=== PATIENT | male | born 2000 | race Caucasian/White ===

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

== ENCOUNTER 2022-06-18 14:53 | Emergency (ER) | payer OTHER, MEDICAID, SELFPAY ==
[2022-06-18 14:53] VITALS: BP 145/118; PULSE 107; RESP 18; TEMP 35.5; O2SAT 99; BMI 30.1
--- NOTE | 2022-06-18 15:06 | EX.ED.DYSGE1 ---
HPI History of Present Illness Chief Complaint: Nausea/Vomiting Informant: patient Onset/Context/Timing Onset: Today Current Severity: Moderate Maximum Severity: Moderate Narrative Narrative: Patient presents secondary to abdominal pain with nausea and vomiting. He drank a shot of liquor an hour ago and developed symptoms after this. PFSH PFSH Medical History no medical history no medical history Home Medications ondansetron 4 mg disintegrating tablet 4 mg PO Q8H PRN PRN Nausea #10 tabs 06/18/22 [Rx Last Taken Unknown] Allergy/AdvReac Type Severity Reaction Status Date / Time No Known Allergies Allergy Verified 06/18/22 14:55 Surgical History no surgical history no surgical history Social History Smoking Status: Never smoker ROS ROS ED Constitutional Constitutional ED: Denies chills or fever(s) Eyes Eyes: Denies change in vision or discharge from eye(s) ENT ENT ED: Denies discharge from eye(s), rhinorrhea or sore throat Cardiovascular Cardiovascular: Denies chest pain or palpitations Respiratory/Chest Respiratory/Chest: Denies cough or dyspnea Gastrointestinal Gastrointestinal: Reports abdominal pain, nausea and vomiting; Denies diarrhea Genitourinary Genitourinary ED: Denies dysuria Musculoskeletal Musculoskeletal: Denies back pain or extremity pain Integumentary Denies Abrasions or rash Neurologic Neurologic: Denies headache(s) or weakness Psychiatric Psychiatric: Reports anxiety Allergic/Immunologic Allergic/Immunologic ED: Denies lip swelling or urticaria EXAM Physical Exam Const Vital Signs: 06/18/22 14:53 Temperature 96 F L Temperature Source Temporal Pulse Rate 107 H Respiratory Rate 18 Blood Pressure 145/118 H Blood Pressure Mean 127 Pulse Ox 99 Oxygen Delivery Method Room Air Positive well nourished and well developed General Appearance ED: well developed HEENT Reports normocephalic and head/scalp atraumatic Eyes PERRL and EOMs intact bilaterally Neck supple Chest Wall inspection of chest normal and palpation of chest normal Resp normal respiratory effort and clear to auscultation bilaterally Cardio regular rate and regular rhythm GI GI Narrative: Mild epigastric tenderness to palpation. No guarding or rebound. Palpation: soft Extremity normal to inspection Neuro oriented x3 and no sensory deficits noted Sensorium / Orientation: alert Motor Exam: strength 5/5 throughout Psych Mood & Affect: anxious Skin no rashes or lesions noted MDM MDM MDM Narrative Medical decision making narrative: Patient initially given IM Toradol and Phenergan. Treatment and Re-Evaluation :: On repeat evaluation patient states he still has vomiting despite IM Phenergan. At that time IV line is established and he is given a liter of fluid along with IV Zofran. On repeat exam he states he had just thrown up again. There is some clear mucus in the emesis bag. He is given a dose of Reglan and Benadryl. At this time patient is resting comfortably. He has not had significant further vomiting. I will discharge him to home with a prescription for Zofran that he can use as needed. I do not feel he needs lab work or further imaging studies. Discharge Plan Triage Chief Complaint: Nausea/Vomiting ED Provider: Meera Barahona Dx/Rx/DC Orders Clinical Impression: Vomiting Instructions: ED Vomiting (Adult) Prescriptions: New ondansetron 4 mg tablet,disintegrating 4 mg PO Q8H PRN PRN (Reason: Nausea) Qty: 10 0RF Primary Care Provider: Yi Lagos Referrals: Yi Lagos MD [Primary Care Provider] - 3-5 Days if not improving Disposition Disposition: Home, Self Care
[2022-06-18] MEDS: Ketorolac 60 MG/2 ML Vial IM (15:10)
[2022-06-18] MEDS: proMETHazine 25 MG/ML Syringe IM (15:11)
[2022-06-18] MEDS: 0.9% Normal Saline 1,000 ML 1000 ML IV (15:57)
[2022-06-18] MEDS: Ondansetron 4 MG/2 ML Vial IV (15:57)
[2022-06-18] MEDS: DiphenhydrAMINE 50 MG/ML Syringe 12.5 MG IV (17:19)
[2022-06-18] MEDS: Metoclopramide 10 MG/2 ML Vial IV (17:19)
== END 2022-06-18 19:35 | disposition home or self-care (01) ==
PROVIDERS: Emergency Provider Emergency Medicine; PCP Pediatrics; Visit Provider Emergency Medicine
DX: R11.2 Nausea with vomiting, unspecified (principal); R10.13 Epigastric pain
CPT/HCPCS: 96361; 96372; 96374; 96375; 99282; J7030; A4216; J2405

== ENCOUNTER 2022-06-20 13:47 | Emergency (ER) | payer BC, MEDICAID, SELFPAY ==
[2022-06-20 13:48] VITALS: BP 140/100; PULSE 63; RESP 16; TEMP 36; O2SAT 99; BMI 28.5
--- NOTE | 2022-06-20 14:03 | ED.VIS.GI ---
HPI HPI - GI History of Present Illness Chief Complaint: Nausea/Vomiting Detail of Chief Complaint: Epigastric abdominal pain. Informant: patient Abdominal Pain/Flank Pain Onset: Days Timing: Intermittent Quality: Cramping Location: Epigastric Current Severity: Mild Maximum Severity: Mild Worsened by: Nothing Relieved by: Nothing Nausea/Vomiting/Emesis GI Symptom: Positive for Nausea and Vomiting Onset: Days Quality: Positive for Nonbilious; Negative for Blood streaks, Coffee ground or Hematemesis Severity: Mild Diarrhea/Melena/Hematochezia GI Symptom: Negative for Diarrhea, Melena or Hematochezia Associated Symptoms Associated Symptoms: Negative for Dysuria, Frequency, Hematuria or Urgency Narrative Narrative: 22-year-old male no seen past medical or surgical history. Denies any prior abdominal surgeries. Was seen 2 days ago for nausea and vomiting after drinking alcohol. He was treated with IV fluids and nausea medication and he improved. He was written a prescription for nausea medication which she never got filled. He presents today complaining of epigastric abdominal pain with nausea and vomiting. He is never had pancreatitis or gastritis. He denies any hematemesis or melena. He denies any right upper quadrant pain. No fever or chills. Prior similar symptoms: Yes Recent Illness/Hospitalization: No PFSH PFSH Medical History no medical history no medical history Home Medications ondansetron 4 mg disintegrating tablet 4 mg PO Q8H PRN PRN Nausea #10 tabs 06/18/22 [Rx Last Taken Unknown] Allergy/AdvReac Type Severity Reaction Status Date / Time No Known Allergies Allergy Verified 06/18/22 14:55 Surgical History no surgical history no surgical history Social History Smoking Status: Never smoker ROS ROS ED ROS Narrative Nausea and vomiting. Epigastric abdominal pain. Review of Systems ROS Unobtainable: Denies due to encephalopathy Constitutional Constitutional ED: Denies chills or fever(s) ENT ENT ED: Denies ear pain Cardiovascular Cardiovascular: Denies chest pain or palpitations Respiratory/Chest Respiratory/Chest: Denies cough or dyspnea Gastrointestinal Gastrointestinal: Reports abdominal pain, nausea and vomiting; Denies constipation, diarrhea or melena Genitourinary Genitourinary ED: Denies dysuria or hematuria Musculoskeletal Musculoskeletal: Denies arthralgias or back pain Integumentary Denies abscess Neurologic Neurologic: Denies headache(s) Psychiatric Psychiatric: Denies anxiety Endocrine Endocrinology: Denies polydipsia Hematologic/Lymphatic Hematologic/Lymphatic: Denies easy bleeding or easy bruising Allergic/Immunologic Allergic/Immunologic ED: Denies mouth swelling or tongue swelling EXAM Physical Exam Narrative Exam Narrative: 22-year-old male vital signs are stable afebrile. He does not look septic or toxic. He is actively nauseated and retching in the room. H EENT exam unremarkable. Neck nontender. Lungs clear to auscultation bilaterally. Heart regular rhythm rate about 65 no murmur. Chest wall nontender. Abdomen soft. Nondistended. Normal bowel sounds. No peritoneal signs. No Asher sign. No McBurney's point tenderness. He does have mild epigastric tenderness. No hernia or mass. No obstruction or distention. Back nontender. Moving all 4 extremities. Calves nontender. Neurologically is awake and alert with no focal motor deficits. Const Vital Signs: 06/20/22 13:48 Temperature 96.8 F L Temperature Source Temporal Pulse Rate 63 Respiratory Rate 16 Blood Pressure 140/100 H Blood Pressure Mean 113 Pulse Ox 99 Oxygen Delivery Method Room Air Positive well nourished and well developed; Negative for obese, cachectic, contractures or unkempt General Appearance ED: well developed and NAD; Negative for unkempt, cachectic, contractures or pallor Nutritional Appearance: Negative for cachectic or obese HEENT Reports moist mucous membranes; Denies dry mucous membranes normocephalic and atraumatic; Negative for trauma or tenderness Mouth ED: No dry mucous membranes Mouth: No dry mucous membranes Eyes PERRL and EOMs intact bilaterally General Eye ED: Negative for pale conjunctiva or scleral icterus Neck no lymphadenopathy, supple and no JVD General: Negative for tenderness Lymph Lymphatic: Negative for other Resp normal respiratory effort and clear to auscultation bilaterally Effort and Inspection: Negative for respiratory distress Auscultation: Negative for rales, rhonchi or wheezes Cardio regular rate, regular rhythm, S1 normal heart sound, S2 normal heart sound and no murmurs Rate: Negative for bradycardia Rhythm: Negative for abnormal rhythm GI non-distended and no masses; Negative for non-tender GI Narrative: Mild epigastric tenderness. Inspection: Negative for abdominal distention Auscultation: normoactive bowel sounds Palpation: soft and tender; Negative for guarding, rigid, hepatomegaly, splenomegaly, hernia, mass, pulsatile mass or rebound tenderness present Back/Spine no CVA tenderness General Back: Negative for CVA tenderness Cervical Spine: Negative for cervical spine tenderness Thoracic Spine / Upper Back: Negative for thoracic spinal tenderness Lumbar Spine / Lower Back: Negative for lumbar spinal tenderness Extremity full ROM General Extremety ED: Negative for edema or tenderness General Extremity: Negative for edema Neuro CN's II-XII intact bilaterally and moves all extremities Sensorium / Orientation: alert, oriented to person, oriented to place and oriented to time; Negative for orientation impaired, confused, lethargic or stuporous Motor Exam: strength 5/5 throughout Psych mental status grossly normal and thought process normal Appearance: Negative for unkempt Attitude: No agitated Mood & Affect: Negative for depressed, anxious or tearful Skin no wounds General Skin Exam: Negative for jaundice or pallor Lesions: no lesions Rashes: no rashes Trauma: Negative for abrasion Nails: Negative for discolored MDM MDM MDM Narrative Medical decision making narrative: 22-year-old male with nausea, vomiting and epigastric abdominal pain. This after drinking alcohol. More likely it is a alcohol induced gastritis. Consider pancreatitis. We will treat with IV fluids. Zofran for nausea. Screening labs to be obtained. This time he does not need any imaging. I do not think it is his gallbladder. Clinically is not his appendix. This could also be a viral syndrome. Repeat exam patient is doing well. He was given a second dose of Zofran. His abdomen shows epigastric discomfort but there is no signs of pancreatitis. Or perforated viscus. He has no right upper or right lower quadrant pain no obstruction. He already was given a prescription of Zofran which he never filled. I will also have him use Tums. I suspect he is got a secondary gastritis from his alcohol use. History & Record Review Discussion w/independent historian: Patient Lab Data Attestation: I reviewed the patient's lab results. Lab results narrative: CBC shows a white count of 14.7. H&H of 17.3 and 50. Platelets 289. Electrolytes unremarkable gap of 10 normal BUN and creatinine. Normal liver enzymes. Glucose 156. Lipase was 70. Labs: Laboratory Results - last 24 hr 06/20/22 06/20/22 14:13 14:13 WBC 14.7 H RBC 6.16 Hgb 17.3 H Hct 50.6 MCV 82.1 MCH 28.1 MCHC 34.2 RDW Std Deviation 38.1 RDW Coeff of Carmelina 12.9 Plt Count 289 MPV 9.5 Immature Gran % (Auto) 0.500 Neut % (Auto) 80.9 H Lymph % (Auto) 13.6 L Beckham % (Auto) 4.6 Eos % (Auto) 0.1 Baso % (Auto) 0.3 Absolute Neuts (auto) 11.9 H Absolute Lymphs (auto) 1.99 Nucleated RBC % 0 Sodium 138 Potassium 3.8 Chloride 104 Carbon Dioxide 24.0 Anion Gap 10 BUN 10 Creatinine 0.96 Estim Creat Clear Calc 146.70 Est GFR (MDRD) Af Amer 127 Est GFR (MDRD) Non-Af 105 BUN/Creatinine Ratio 10.4 Glucose 156 H Calcium 9.7 Total Bilirubin 0.40 AST 51 H ALT 58 Alkaline Phosphatase 88 Total Protein 8.0 Albumin 4.4 Globulin 3.6 Albumin/Globulin Ratio 1.2 Lipase 70 L Discharge Plan Triage Chief Complaint: Nausea/Vomiting ED Provider: Rene Bautista Dx/Rx/DC Orders Clinical Impression: Vomiting, Gastritis Instructions: ED Gastritis (Adult), ED Vomiting (Adult) Prescriptions: No Action ondansetron 4 mg tablet,disintegrating 4 mg PO Q8H PRN PRN (Reason: Nausea) Qty: 10 0RF Primary Care Provider: Yi Lagos Referrals: Yi Lagos MD [Primary Care Provider] - 3-5 Days if not improving Activity Restrictions/Additional Instructions: Plenty of fluids and rest. Tums to help your stomach. You can take 2 every 4 hours as needed. Avoid alcoholand spicy foods until improving. Zofran, the prescription you were given the other day, for nausea. Disposition Disposition: Home, Self Care
[2022-06-20] MEDS: Ondansetron 4 MG/2 ML Vial IV ×2 (14:11→15:54)
[2022-06-20] MEDS: 0.9% Normal Saline 1,000 ML 1000 ML IV (14:11)
[2022-06-20 14:19] LABS: Absolute Lymphocyte Count 1.99 X10^3/uL (0.83-4.51); Absolute Neutrophil Count 11.9 X10^3/uL (2.0-7.7); Basophil# 0.05 X10^3/uL; Basophil% 0.3 % (0-1); Eosinophil# 0.02 X10^3/uL; Eosinophils% 0.1 % (0-5); Hematocrit 50.6 % (40-54); Hemoglobin 17.3 g/dL (13.0-16.5); Lymphocyte # 1.99 X10^3/ul (0.83-4.51); Lymphocyte % 13.6 % (19-41); Mean Corp Hgb Conc 34.2 g/dL (32-36); Mean Corpuscular Hgb 28.1 pg (27.0-32.0); Mean Corpuscular Volume 82.1 fL (80-94); Mean Platelet Vol. 9.5 fl (6.2-12.0); Monocyte# 0.68 X10^3/uL; Monocyte% 4.6 % (0-10); NRBC Flagged by Analyzer 0 % (0-5); Neutrophil # 11.85 X10^3/uL (2.7-7.7); Neutrophil % 80.9 % (47-70); Platelet Count 289 K/mm3 (150-450); RBC Distribution Width CV 12.9 % (11.6-14.6); RBC Distribution Width SD 38.1 fl (35.1-43.9); Red Blood Count 6.16 M/mm3 (4.6-6.2); White Blood Count 14.7 K/mm3 (4.4-11.0)
[2022-06-20 15:43] LABS: ALB/GLOB Ratio 1.2 RATIO (0.9-2.4); AST(SGOT) 51 U/L (15-37); Alanine Aminotransfer ALT/SGPT 58 U/L (16-61); Albumin, Serum 4.4 g/dL (3.2-5.0); Alkaline Phosphatase 88 U/L (45-117); Anion Gap 10 (5-15); BUN 10 mg/dL (7-18); BUN/Creat Ratio 10.4 RATIO (10-20); Calcium,Total 9.7 mg/dL (8.5-10.1); Chloride 104 mmol/L (98-107); Creatinine, Serum 0.96 mg/dL (0.70-1.30); EST Glomerular Filtration Rate 105 mL/min (>60); Est Glom Filt Rate - Afr Amer 127 mL/min (>60); Globulin 3.6 g/dL (2.2-4.2); Glucose 156 mg/dL (74-106); Lipase 70 U/L (73-393); Potassium 3.8 mmol/L (3.5-5.1); Sodium Level 138 mmol/L (136-145)
[2022-06-20] MEDS: Metoclopramide 10 MG/2 ML Vial IV (16:31)
[2022-06-20] MEDS: DiphenhydrAMINE 50 MG/ML Syringe 25 MG IV (16:31)
== END 2022-06-20 17:24 | disposition home or self-care (01) ==
PROVIDERS: Emergency Provider Emergency Medicine; PCP Pediatrics; Visit Provider Emergency Medicine
DX: K29.70 Gastritis, unspecified, without bleeding (principal); F10.90 Alcohol use, unspecified, uncomplicated
CPT/HCPCS: 80053; 83690; 85025; 96361; 96365; 96375; 96376; 99283; J7030; A4216; J2405

== ENCOUNTER 2023-10-04 11:09 | Emergency (ER) | payer SELFPAY ==
[2023-10-04 11:10] VITALS: BP 157/89; PULSE 80; RESP 16; TEMP 35.6; O2SAT 97; BMI 23.7
--- NOTE | 2023-10-04 11:28 | RAD_ITS ---
EXAM: XR LEFT HAND COMPLETE, 3 OR MORE VIEWS CLINICAL INDICATION: hand pain TECHNIQUE: Frontal, lateral and oblique views of the left hand. COMPARISON: No relevant prior studies available. FINDINGS: BONES/JOINTS: No significant abnormality. No acute fracture. No subluxation. Normal alignment. Preservation of the joint space. No sclerotic or destructive changes observed. SOFT TISSUES: No significant abnormality. No soft tissue swelling or gas. No radiopaque foreign body. RAD/Hand Min 3 Views IMPRESSION: Negative left hand x-rays. Electronically Signed: Mich Lambert DO at 11:38 EDT ,
[2023-10-04] MEDS: Ondansetron 4 MG/2 ML Vial IV (11:37)
[2023-10-04] MEDS: 0.9% Normal Saline (1000mL) 1,000 ML 999 ML IV (11:37)
[2023-10-04] MEDS: Ketorolac 15 MG/ML Vial IV (11:38)
[2023-10-04] MEDS: Famotidine 200 MG/20 ML MDV 20 MG in 0.9% Normal Saline (Pres. free 8 ML 300 MG IV (11:42)
[2023-10-04 11:49] LABS: Absolute Lymphocyte Count 1.07 X10^3/uL (0.83-4.51); Basophil# 0.03 X10^3/uL; Basophil% 0.3 % (0-1); Eosinophil# 0.05 X10^3/uL; Eosinophils% 0.4 % (0-5); Hematocrit 44.4 % (40-54); Hemoglobin 15.3 g/dL (13.0-16.5); Lymphocyte # 1.07 X10^3/ul (0.83-4.51); Mean Corp Hgb Conc 34.5 g/dL (32-36); Mean Corpuscular Hgb 31.2 pg (27.0-32.0); Mean Corpuscular Volume 90.6 fL (80-94); Mean Platelet Vol. 10.4 fl (6.2-12.0); Monocyte# 0.58 X10^3/uL; Monocyte% 4.9 % (0-10); NRBC Flagged by Analyzer 0 % (0-5); Neutrophil # 10.03 X10^3/uL (2.7-7.7); Neutrophil % 84.8 % (47-70); Platelet Count 240 K/mm3 (150-450); RBC Distribution Width CV 12.4 % (11.6-14.6); RBC Distribution Width SD 40.6 fl (35.1-43.9); White Blood Count 11.8 K/mm3 (4.4-11.0)
--- NOTE | 2023-10-04 11:49 | EX.ED.DYSGE1 ---
HPI <SOHA Mccallum - Last Filed: 10/04/23 12:51> History of Present Illness Chief Complaint: Nausea/Vomiting Narrative Narrative: Patient is a 23-year-old male with no significant medical history presents to the emergency department with multiple chronic complaints. Patient states that he has been having abdominal pain, nausea and vomiting every morning over the last 6 months. Patient also is here because he has a lump to the left palm and some numbness and tingling to his fingers that has been ongoing for the last 2 months. Patient does use marijuana daily, he states he stopped for a day or 2 to see if it helped his pain but it did not. Patient has not followed up with the PCP or orthopedic. Denies any fever chills nausea or vomiting. Denies any surgical history. PFSH <SOHA Mccallum - Last Filed: 10/04/23 12:51> PFSH Home Medications ?Medication ?Instructions ?Recorded ?Last Taken ?Type ondansetron 4 mg disintegrating 4 mg PO Q8H PRN PRN Nausea #10 tabs 06/18/22 Unknown Rx tablet Allergy/AdvReac Type Severity Reaction Status Date / Time No Known Allergies Allergy Verified 10/04/23 11:10 Social History Smoking Status: Current every day smoker tobacco type: e-cigarettes ROS <SOHA Mccallum - Last Filed: 10/04/23 12:51> ROS ED ROS Narrative Constitutional: Negative for fever, chills, weight loss, weakness Eyes: Negative for vision loss, vision change, double vision ENT: Negative for any sore throat, ear pain, congestion Cardiovascular: Negative for any chest pain, tightness, palpitations Respiratory: Negative for any cough, sputum production, hemoptysis, dyspnea, dyspnea on exertion, orthopnea Gastrointestinal: Negative for any diarrhea, constipation, blood in stool, blood in vomit. Positive for abdominal pain, nausea and vomiting : Negative for any urinary frequency, dysuria, retention, blood in urine Muscle skeletal: Negative for any neck pain, back pain. Positive for left hand lump, numbness and tingling Neurological: Negative for any headache, syncope, dizziness Skin: Negative for any rashes, itching, abrasions, lacerations Psychiatric: Negative for any depression, anxiety, stress, suicidal ideation, homicidal ideation Hematologic: Negative for any excessive bruising, easy bleeding EXAM <SOHA Mccallum - Last Filed: 10/04/23 12:51> Physical Exam Narrative Exam Narrative: Vital signs reviewed. HEET: Head normocephalic atraumatic, TMs clear bilaterally. Posterior pharynx is clear, moist mucous membranes. Nares clear bilaterally. Neck: Supple with no lymphadenopathy or tenderness. No signs of meningismus. Cardiac: Regular rate and rhythm no murmurs gallops or rubs, equal peripheral pulses bilaterally. Respiratory: Lungs clear to auscultation bilaterally. No chest tenderness. Abdomen: Soft, nontender, nondistended. No abdominal bruit or pulsatile masses. No hepatosplenomegaly Extremities: No peripheral edema, no signs of gross trauma or deformity. Active full range of motion of all extremities. Patient does have what appears to be a lump on the palmar aspect of the left hand in between the third and fourth digit. There is no erythema, there is no abscess, cellulitis, obvious injury. Neuro: Cranial nerves II through XII intact, no focal neurological deficits. Skin: Clean dry and intact with no rash, purpura, petechiae, vesicles or pustules. Backs/flank: No CVA tenderness, no midline spinal tenderness, no deformity. Psych: Normal mood and affect. No SI, HI or acute psychosis. Const Vital Signs: 10/04/23 11:10 10/04/23 13:03 Temperature 96.1 F L 97.8 F Temperature Source Temporal Pulse Rate 80 88 Respiratory Rate 16 18 Blood Pressure 157/89 H 157/89 H Blood Pressure Mean 111 111 Pulse Ox 97 98 Oxygen Delivery Method Room Air Positive well nourished and well developed General Appearance ED: well developed <Beto Dominguez MD - Last Filed: 10/04/23 15:16> Physical Exam Const Vital Signs: 10/04/23 11:10 10/04/23 13:03 Temperature 96.1 F L 97.8 F Temperature Source Temporal Pulse Rate 80 88 Respiratory Rate 16 18 Blood Pressure 157/89 H 157/89 H Blood Pressure Mean 111 111 Pulse Ox 97 98 Oxygen Delivery Method Room Air MDM <SOHA Mccallum - Last Filed: 10/04/23 12:51> MDM Lab Data Labs: Laboratory Results - last 24 hr 10/04/23 11:40 WBC 11.8 H RBC 4.90 Hgb 15.3 Hct 44.4 MCV 90.6 MCH 31.2 MCHC 34.5 RDW Std Deviation 40.6 RDW Coeff of Carmelina 12.4 Plt Count 240 MPV 10.4 Immature Gran % (Auto) 0.600 Neut % (Auto) 84.8 H Lymph % (Auto) 9.0 L [place] % (Auto) 4.9 Eos % (Auto) 0.4 Baso % (Auto) 0.3 Absolute Neuts (auto) 10.0 H Absolute Lymphs (auto) 1.07 Nucleated RBC % 0 Sodium 137 Potassium 4.1 Chloride 106 Carbon Dioxide 27.0 Anion Gap 4 L BUN 12 Creatinine 0.77 Estim Creat Clear Calc 181.38 Est GFR (MDRD) Af Amer 162 Est GFR (MDRD) Non-Af 134 BUN/Creatinine Ratio 15.5 Glucose 106 Calcium 9.2 Total Bilirubin 0.50 AST 98 H ALT 55 Alkaline Phosphatase 69 Total Protein 7.7 Albumin 4.2 Globulin 3.5 Albumin/Globulin Ratio 1.2 Lipase 20 Radiography Diagnostic Testing: Clinical Impression(s) from Imaging Studies Hand X-Ray 10/04/23 11:28 IMPRESSION: Negative left hand x-rays. Electronically Signed: Mich Lambert DO at 11:38 EDT , Treatment and Re-Evaluation :: Patient appears to be in no obvious distress vital signs are stable, presenting to the emergency department with complaints of ongoing abdominal pain, nausea and vomiting for 6 months, left hand pain with numbness and tingling to his fingers for the last 2 months. X-rays of the left hand were obtained, interpreted by the ER physician, these were negative. I do believe the patient could have a cyst that is compressing some nerves that could be causing some numbness and tingling. He will need to follow-up with orthopedics. Patient will receive basic laboratory values, CBC CMP lipase as well as IV fluids, Zofran Pepcid and Toradol. At this time, I do not believe the patient needs any advanced imaging, this does seem to be a chronic problem. I did speak with him that this could be secondary to his marijuana. Patient will be reevaluated Patient CBC shows slight leukocytosis with a white blood count 11.8, patient's chemistries show a negative anion gap, AST of 98, lipase is 20 which is negative. On reevaluation, the patient was feeling much better. Patient able to pass a p.o. challenge. I spoke with the patient at length regarding his marijuana use, as well as the following up with the orthopedic for his hand. He is agreeable with the plan. He is instructed to stop using marijuana, he will be given Zofran and Bentyl for home. All questions were answered, instructed return for any worsening symptoms. <Beto Dominguez MD - Last Filed: 10/04/23 15:16> [facility] MDM Narrative Medical decision making narrative: Dr. Dominguez: I have personally performed a face to face assessment of the patient and have reviewed the DELMI Note. I performed a substantive portion of the visit including all aspects of the following. My pizano findings include: History is swelling or lump in palm of left hand times months. Nausea and vomiting daily. Positive history of marijuana use. Exam is afebrile. Vital signs noted. Regular rate and rhythm. Mild swelling in palm of left hand, questionable movement along tendon. Medical Decision Making: The differential diagnosis for the swelling of the palm of the hand has been present for months that is ganglion cyst versus hematoma. X-rays of the left hand obtained and interpreted by myself independently shows no evidence of acute bony fracture. I reviewed the radiology report which confirms my independent interpretation. Regarding his nausea and vomiting on a daily basis, he may have dehydration from this, peptic ulcer disease versus gastritis versus cannabis induced hyperemesis. He was told to refrain from THC use. I reviewed his laboratory work and he has elevated white count of 11.8 which I think is nonspecific, AST slightly elevated at 98 which I think is nonspecific, ALT normal at 55. Lipase normal at 20 so I doubt pancreatitis. IV fluids. Follow-up primary care versus gastroenterology. Discharge. Other additions or changes: [None] History & Record Review Discussion w/independent historian: Patient Lab Data Attestation: I reviewed the patient's lab results. Labs: Laboratory Results - last 24 hr 10/04/23 11:40 WBC 11.8 H RBC 4.90 Hgb 15.3 Hct 44.4 MCV 90.6 MCH 31.2 MCHC 34.5 RDW Std Deviation 40.6 RDW Coeff of Carmelina 12.4 Plt Count 240 MPV 10.4 Immature Gran % (Auto) 0.600 Neut % (Auto) 84.8 H Lymph % (Auto) 9.0 L [place] % (Auto) 4.9 Eos % (Auto) 0.4 Baso % (Auto) 0.3 Absolute Neuts (auto) 10.0 H Absolute Lymphs (auto) 1.07 Nucleated RBC % 0 Sodium 137 Potassium 4.1 Chloride 106 Carbon Dioxide 27.0 Anion Gap 4 L BUN 12 Creatinine 0.77 Estim Creat Clear Calc 181.38 Est GFR (MDRD) Af Amer 162 Est GFR (MDRD) Non-Af 134 BUN/Creatinine Ratio 15.5 Glucose 106 Calcium 9.2 Total Bilirubin 0.50 AST 98 H ALT 55 Alkaline Phosphatase 69 Total Protein 7.7 Albumin 4.2 Globulin 3.5 Albumin/Globulin Ratio 1.2 Lipase 20 Radiography Diagnostic Testing: Clinical Impression(s) from Imaging Studies Hand X-Ray 10/04/23 11:28 IMPRESSION: Negative left hand x-rays. Electronically Signed: Mich Lambert DO at 11:38 EDT , Discharge Plan Triage Chief Complaint: Nausea/Vomiting Other Complaint: Upper Extremity Injury ED Midlevel Provider: Micheal Sanchez ED Provider: Beto Dominguez Dx/Rx/DC Orders Clinical Impression: Nausea & vomiting, Paresthesia Instructions: ED Vomiting (Adult), ED Paraesthesias Prescriptions: No Action ondansetron 4 mg tablet,disintegrating 4 mg PO Q8H PRN PRN (Reason: Nausea) Qty: 10 0RF Primary Care Provider: Care Physician,No Primary Referrals: Mauro Oseguera DO [Med Staff - Active Staff] - Care Physician,No Primary [Primary Care Provider] - Activity Restrictions/Additional Instructions: Please follow-up outpatient. Try to decrease her marijuana use. Follow-up with orthopedics. Print Language: Zimbabwean Disposition Disposition: Home, Self Care Discharge Date/Time: 10/04/23 13:03
[2023-10-04 12:02] LABS: ALB/GLOB Ratio 1.2 RATIO (0.9-2.4); AST(SGOT) 98 U/L (15-37); Alanine Aminotransfer ALT/SGPT 55 U/L (16-61); Albumin, Serum 4.2 g/dL (3.2-5.0); Alkaline Phosphatase 69 U/L (45-117); Anion Gap 4 (5-15); BUN 12 mg/dL (7-18); BUN/Creat Ratio 15.5 RATIO (10-20); Calcium,Total 9.2 mg/dL (8.5-10.1); Chloride 106 mmol/L (98-107); Creatinine, Serum 0.77 mg/dL (0.70-1.30); EST Glomerular Filtration Rate 134 mL/min (>60); Est Glom Filt Rate - Afr Amer 162 mL/min (>60); Estimated Creatinine Clearance 181.38 ml/min; Globulin 3.5 g/dL (2.2-4.2); Glucose 106 mg/dL (74-106); Lipase 20 U/L (13-75); Potassium 4.1 mmol/L (3.5-5.1); Protein, Total 7.7 g/dL (6.4-8.2); Sodium Level 137 mmol/L (136-145)
[2023-10-04 13:03] VITALS: BP 157/89; PULSE 88; RESP 18; TEMP 36.6; O2SAT 98
== END 2023-10-04 13:03 | disposition home or self-care (01) ==
PROVIDERS: Nurse Practitioner; Emergency Provider Emergency Medicine; Visit Provider Emergency Medicine
DX: R11.2 Nausea with vomiting, unspecified (principal); R20.2 Paresthesia of skin; F12.90 Cannabis use, unspecified, uncomplicated; F17.290 Nicotine dependence, other tobacco product, uncomplicated
CPT/HCPCS: 73130; 80053; 83690; 85025; 96361; 96374; 96375; 99283; J7030; A4216; J2405; J3490

== ENCOUNTER 2024-02-26 18:35 | Emergency (ER) | payer OTHER, SELFPAY ==
[2024-02-26 18:36] VITALS: BP 130/78; PULSE 99; RESP 16; TEMP 36.8; O2SAT 100; BMI 24.3
--- NOTE | 2024-02-26 22:45 | EX.ED.GENINJ ---
HPI History of Present Illness Chief Complaint: Head Injury Narrative Narrative: 24-year-old male states he has had previous concussion 6 years ago presents with head injury and headache that he sustained at work. 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 There was a steel light above him. He bent over to get something and when he stood up, hit the top of his head on the steel light. He denies loss of consciousness but states he has a headache. No neck pain, no paresthesias. No nausea or vomiting. He states he was brought in by his boss to get checked out. The incident happened 5 hours prior to being seen and evaluated in the emergency department. She denies other injury. No exacerbating or alleviating factors. He does not take blood thinners. PFSH PFS Medical History no medical history Home Medications ?Medication ?Instructions ?Recorded ?Last Taken ?Type ondansetron 4 mg disintegrating 4 mg PO Q8H PRN PRN Nausea #10 tabs 06/18/22 Unknown Rx tablet Allergy/AdvReac Type Severity Reaction Status Date / Time No Known Allergies Allergy Verified 02/26/24 18:36 Social History Smoking Status: Current every day smoker tobacco type: e-cigarettes ROS ROS ED ROS Narrative Constitutional: No fever, no chills. No loss of consciousness. HEENT: No sore throat. No neck pain. No loss of vision. No rhinorrhea. Cardiovascular: No chest pain. No palpitations. No pedal edema. Respiratory: No cough, no shortness of breath. Abdominal: No abdominal pain. No nausea. No vomiting. Genitourinary: No dysuria. No hematuria. Musculoskeletal: No myalgias. No arthralgias. Neurologic: Positive headaches. No dizziness. No lightheadedness. No paresthesias of arms or legs. Skin: No rash. No change in color. EXAM Physical Exam Narrative Exam Narrative: Afebrile. Vital signs noted. GCS 15. ABCs intact. No crepitance of skull. No noted laceration on top of head. Neck soft and supple with full range of motion. No vertebral point tenderness or bony step-off. Able to raise arms above head without difficulty. Cardiovascular examination regular rate and rhythm. Lungs clear to auscultation bilaterally. Abdomen is soft and nontender with positive bowel sounds. Neurological examination nonfocal and nonlateralizing. Awake, alert, oriented x 3. Moves all extremities. Const Vital Signs: 02/26/24 18:36 02/26/24 22:28 Temperature 98.2 F Temperature Source Oral Pulse Rate 99 Respiratory Rate 16 Respiratory Effort Normal Blood Pressure 130/78 H Blood Pressure Mean 95 Pulse Ox 100 Oxygen Delivery Method Room Air Room Air MDM MDM MDM Narrative Medical decision making narrative: Differential diagnosis includes but not limited to mild concussion versus intracranial hemorrhage versus skull fracture. In the ED has scalp contusion. I do not feel CT imaging is indicated. I offered him [id number] medications for analgesia but he declined here in the emergency department, states he is familiar with concussive type symptoms. He [facility] as this is work-related. He was given a note to return to work tomorrow with activity as tolerated. Return instructions to the emergency department were reviewed. Disposition is discharged home in stable condition. History & Record Review Discussion w/independent historian: Patient Discharge Plan Triage Chief Complaint: Head Injury ED Provider: Beto Dominguez Dx/Rx/DC Orders Clinical Impression: Contusion of scalp, Concussion Instructions: ED Concussion, ED Scalp Contusion Prescriptions: No Action ondansetron 4 mg tablet,disintegrating 4 mg PO Q8H PRN PRN (Reason: Nausea) Qty: 10 0RF Primary Care Provider: Care Physician,No Primary Referrals: Care Physician,No Primary [Primary Care Provider] - [facility] [Non-Staff] - 3-5 Days Activity Restrictions/Additional Instructions: [id number] medications such as Tylenol or ibuprofen as needed for pain. Follow-up with the [facility] or a Workmen's Comp. provider of your choice. Print Language: Hungarian Disposition Disposition: Home, Self Care
[2024-02-26 22:53] VITALS: BP 125/72; PULSE 75; RESP 16; TEMP 36.8; O2SAT 99
== END 2024-02-26 22:54 | disposition home or self-care (01) ==
LOC: ED 22:53
PROVIDERS: Emergency Provider Emergency Medicine; Visit Provider Emergency Medicine
DX: S06.0X0A Concussion without loss of consciousness, initial encounter (principal); S00.03XA Contusion of scalp, initial encounter; W22.09XA Striking against other stationary object, initial encounter; Y93.89 Activity, other specified; Y99.0 Civilian activity done for income or pay; Y92.511 Restaurant or cafe as the place of occurrence of the external cause; F17.290 Nicotine dependence, other tobacco product, uncomplicated
CPT/HCPCS: 99282

== ENCOUNTER 2024-04-25 09:27 | Emergency (ER) | payer SELFPAY ==
[2024-04-25 09:28] VITALS: BP 122/88; PULSE 106; RESP 18; TEMP 36.4; O2SAT 98; BMI 22.5
[2024-04-25 09:30] VITALS: BP 122/88; PULSE 117; RESP 18; TEMP 36.4; O2SAT 98
--- NOTE | 2024-04-25 09:47 | EDS_ITS ---
HPI HPI - GI History of Present Illness Chief Complaint: Nausea/Vomiting Informant: patient Abdominal Pain/Flank Pain Onset: Days Context: Gradual Onset Timing: Intermittent Quality: Cramping Location: Diffuse Current Severity: Mild Maximum Severity: Mild Worsened by: Nothing Relieved by: Nothing Nausea/Vomiting/Emesis GI Symptom: Positive for Nausea and Vomiting Onset: Days Severity: Moderate Diarrhea/Melena/Hematochezia GI Symptom: Positive for Diarrhea and - (For 1 day but has since resolved.) Stool Quality: Positive for Loose Severity: Mild Associated Symptoms Associated Symptoms: Negative for Dysuria, Frequency, Hematuria or Urgency Narrative Narrative: Healthy 24-year-old male with a medical history and past medical history. No prior abdominal surgeries. Says for the last 3 days he has had nausea and vomiting. He had diarrhea the first day since resolved. Lives at home with his family said multiple members have had similar symptoms there is of now resolved. He denies any fever. Only abdominal pain is complaining of his crampiness. Feels dehydrated. Prior similar symptoms: Yes Recent Illness/Hospitalization: No PFSH PFSH Medical History no medical history no medical history Home Medications ?Medication ?Instructions ?Recorded ?Last Taken ?Type ondansetron 4 mg disintegrating 4 mg PO Q8H PRN PRN Na usea #10 tabs 06/18/22 Unknown Rx tablet ondansetron 4 mg disintegrating 4 mg PO Q6H PRN nausea and 04/25/24 Unknown Rx tablet vomiting #7 tabs Allergy/AdvReac Type Severity Reaction Status Date / Time No Known Allergies Allergy Verified 04/25/24 09:44 Social History Smoking Status: Current every day smoker tobacco type: e-cigarettes ROS ROS ED ROS Narrative Nausea, vomiting and diarrhea that is since resolved. Constitutional Constitutional ED: Denies chills or fever(s) ENT ENT ED: Denies ear pain Cardiovascular Cardiovascular: Denies chest pain Respiratory/Chest Respiratory/Chest: Denies cough or dyspnea Gastrointestinal Gastrointestinal: Reports abdominal pain, diarrhea, nausea, vomiting and other Details: Diffuse crampy abdominal discomfort Genitourinary Genitourinary ED: Denies dysuria or hematuria Musculoskeletal Musculoskeletal: Denies arthralgias Integumentary Denies abscess or Abrasions Neurologic Neurologic: Denies headache(s) Psychiatric Psychiatric: Denies anxiety or depression Endocrine Endocrinology: Denies polydipsia Hematologic/Lymphatic Hematologic/Lymphatic: Denies easy bleeding, easy bruising or lymphadenopathy Allergic/Immunologic Allergic/Immunologic ED: Denies mouth swelling, tongue swelling or urticaria EXAM Physical Exam Narrative Exam Narrative: 24-year-old male sitting upright in bed. Vital signs stable tachycardic 117. Patient does not look septic or toxic does look mildly dehydrated. H EENT exam pupils round reactive light. Mildly dry mucous membranes. Tongue midline. Neck nontender no lymphadenopathy. Lungs clear to auscultation. Heart tachycardic 115 no murmur. Chest wall and ribs nontender. Abdomen soft nondistended normal bowel sounds without peritoneal signs. No localizing right lower right upper quadrant tenderness. No distention. No hernia or mass. Moving all 4 extremities. Nontender no edema. Skin unremarkable. No rashes. Back nontender. Neurologically is awake and alert. No focal motor deficits. Const Vital Signs: 04/25/24 09:28 04/25/24 09:30 04/25/24 11:00 Temperature 97.5 F L 97.5 F L 98.2 F Temperature Source Oral Oral Oral Pulse Rate 106 H 117 H 74 Respiratory Rate 18 18 16 Blood Pressure 122/88 H 122/88 H 135/66 H Blood Pressure Mean 99 99 89 Pulse Ox 98 98 100 Oxygen Delivery Method Room Air Room Air Room Air 04/25/24 11:28 Temperature Temperature Source Pulse Rate 72 Respiratory Rate 16 Blood Pressure 127/77 H Blood Pressure Mean 93 Pulse Ox 100 Oxygen Delivery Method Room Air Positive well nourished and well developed; Negative for obese, cachectic, contractures or unkempt General Appearance ED: well developed and NAD; Negative for unkempt, cachectic, contractures or pallor Nutritional Appearance: Negative for cachectic or obese HEENT Reports dry mucous membranes; Denies moist mucous membranes normocephalic and atraumatic Mouth ED: Yes dry mucous membranes Mouth: dry mucous membranes Eyes PERRL and EOMs intact bilaterally Neck no lymphadenopathy, supple and no JVD General: Negative for tenderness Carotids: Negative for other Resp normal respiratory effort and clear to auscultation bilaterally Auscultation: Negative for rales, rhonchi or wheezes Cardio regular rhythm, S1 normal heart sound, S2 normal heart sound and no murmurs; Negative for regular rate Rate: tachycardic GI non-tender, non-distended and no masses Auscultation: normoactive bowel sounds Palpation: soft; Negative for tender, guarding, mass or rebound tenderness present Back/Spine no CVA tenderness General Back: Negative for CVA tenderness Cervical Spine: Negative for cervical spine tenderness Thoracic Spine / Upper Back: Negative for thoracic spinal tenderness Lumbar Spine / Lower Back: Negative for lumbar spinal tenderness Extremity full ROM General Extremety ED: Negative for edema or tenderness General Extremity: Negative for edema Neuro CN's II-XII intact bilaterally and moves all extremities Sensorium / Orientation: alert, oriented to person, oriented to place and oriented to time; Negative for orientation impaired, confused, lethargic or stuporous Motor Exam: strength 5/5 throughout Psych mental status grossly normal and thought process normal Appearance: Negative for unkempt Mood & Affect: Negative for depressed, anxious or tearful Skin no wounds General Skin Exam: Negative for jaundice or pallor Lesions: no lesions Rashes: no rashes Trauma: Negative for abrasion Nails: Negative for discolored MDM MDM MDM Narrative Medical decision making narrative: 24-year-old male suspect viral gastroenteritis. Diarrhea resolved. He still having nausea and vomiting. Clinically looks dehydrated. Will be treated with a liter normal saline. IV Zofran. P.o. fluid challenge and reassess. I am obtaining chemistry panel. I do not feel he needs imaging at this time I do not think he has an appendicitis or bowel obstruction. Repeat exam at 11:40 AM patient is doing much better abdomen nontender. He has been able to hold down some ice chips and water. He will be given another dose of Zofran and discharged home with prescription for Zofran. Treated as a viral gastroenteritis. Off work next 2 days. He is comfortable with the plan. History & Record Review Discussion w/independent historian: Patient Lab Data Attestation: I reviewed the patient's lab results. Lab results narrative: BMP shows a sodium 132. Gap 13. BUN of 20 creatinine 1.1. Glucose 127. Labs: Laboratory Results - last 24 hr 04/25/24 09:54 Sodium 132 L Potassium 3.8 Chloride 95 L Carbon Dioxide 24.0 Anion Gap 13 BUN 20 H Creatinine 1.10 Estim Creat Clear Calc 121.65 Est GFR (MDRD) Af Amer 107 Est GFR (MDRD) Non-Af 89 BUN/Creatinine Ratio 18.2 Glucose 127 H Calcium 10.4 H Discharge Plan Triage Chief Complaint: Nausea/Vomiting ED Provider: Rene Bautista Dx/Rx/DC Orders Clinical Impression: Viral gastroenteritis, Acute dehydration, Nausea, vomiting, and diarrhea Instructions: ED Gastroenteritis, Viral (Adult) Prescriptions: New ondansetron 4 mg tablet,disintegrating 4 mg PO Q6H PRN (Reason: nausea and vomiting) Qty: 7 0RF No Action ondansetron 4 mg tablet,disintegrating 4 mg PO Q8H PRN PRN (Reason: Nausea) Qty: 10 0RF Primary Care Provider: Care Physician,No Primary Referrals: Aiden Matos MD [Med Staff - [employer] Assistant Manager] - 3-5 Days if not improving Care Physician,No Primary [Primary Care Provider] - Activity Restrictions/Additional Instructions: Plenty of fluids and rest. Water, 7-Up and Gatorade. Slowly increase your diet as tolerated. Zofran as needed for nausea. You may swallow or let dissolve under your tongue. Follow-up with a local physician if not improving or return if feeling worse or unable to keep fluids down. Off work today and tomorrow. Print Language: Occitan Disposition Disposition: Home, Self Care
[2024-04-25] MEDS: 0.9% Normal Saline (1000mL) 1,000 ML 1000 ML IV (09:53)
[2024-04-25] MEDS: Ondansetron 4 MG/2 ML Vial IV ×2 (09:53→11:51)
[2024-04-25 10:12] LABS: Anion Gap 13 (5-15); BUN 20 mg/dL (7-18); BUN/Creat Ratio 18.2 RATIO (10-20); Calcium,Total 10.4 mg/dL (8.5-10.1); Chloride 95 mmol/L (98-107); EST Glomerular Filtration Rate 89 mL/min (>60); Est Glom Filt Rate - Afr Amer 107 mL/min (>60); Estimated Creatinine Clearance 121.65 ml/min; Glucose 127 mg/dL (74-106); Potassium 3.8 mmol/L (3.5-5.1); Sodium Level 132 mmol/L (136-145)
[2024-04-25 11:00] VITALS: BP 135/66; PULSE 74; RESP 16; TEMP 36.8; O2SAT 100
[2024-04-25 11:28] VITALS: BP 127/77; PULSE 72; RESP 16; O2SAT 100
[2024-04-25 11:53] VITALS: BP 122/90; PULSE 76; RESP 16; TEMP 36.7; O2SAT 99
== END 2024-04-25 11:55 | disposition home or self-care (01) ==
PROVIDERS: Emergency Provider Emergency Medicine; Visit Provider Emergency Medicine
DX: A08.4 Viral intestinal infection, unspecified (principal); E86.0 Dehydration; F17.290 Nicotine dependence, other tobacco product, uncomplicated
CPT/HCPCS: 80048; 96361; 96374; 96376; 99282; A4216; J2405

== ENCOUNTER 2024-04-26 09:44 | Inpatient (IN) | payer SELFPAY ==
[2024-04-26] VITALS (7 sets, daily range): BP systolic 112–128; BP diastolic 59–92; PULSE 55–73; RESP 14–18; TEMP 36.4–37.3; O2SAT 97–100; BMI 22.2
--- NOTE | 2024-04-26 10:13 | CT_ITS ---
PROCEDURE: ABDOMEN/PELVIS W IV CONT ONLY REASON FOR EXAM: Nausea and vomiting since Thursday. TECHNIQUE: Abdomen and pelvis CT with intravenous contrast. IV CONTRAST: 100 cc of Isovue-300. COMPARISON: None. FINDINGS: Lung bases: Clear Liver: Unremarkable. Gallbladder: Unremarkable. Spleen: Unremarkable. Pancreas: Unremarkable. Adrenals: Unremarkable. Kidneys: Unremarkable. Bladder: Unremarkable. Reproductive Organs: Unremarkable. Bowel: Unremarkable. Appendix: Mild inflammatory changes are seen surrounding the appendix which is deep in the right hemipelvis. Early appendicitis should be ruled out. Lymph nodes: No suspicious lymph node enlargement. Vasculature: Major vascular structures are unremarkable. Peritoneum / Retroperitoneum: No ascites. No free air. Bones: Unremarkable. CT/Abdomen/Pelvis W IV Cont ONLY IMPRESSION: Early appendicitis should be ruled out. Clinical correlation recommended. One or more dose reduction techniques were used (e.g., Automated exposure contr ol, adjustment of the mA and/or kV according to patient size, use of iterative reconstruction technique). Reading Location: [place] [id number]
--- NOTE | 2024-04-26 10:13 | ED.VIS.GI ---
HPI HPI - GI History of Present Illness Chief Complaint: Abd Pain Narrative Narrative: 24-year-old male who denies significant past medical history presents with 5 days worth of nausea and vomiting, and diarrhea. While the diarrhea has resolved, he feels dehydrated, and states he vomited at least 12 times this morning within the last 24 hours. Of note, he states he was seen in the emergency department yesterday for the same thing. He has subjective fevers and chills. He has not used THC products in the last month. He denies significant past medical history. PFSH PFSH Home Medications ?Medication ?Instructions ?Recorded ?Last Taken ?Type NK 04/26/24 Unknown History Allergy/AdvReac Type Severity Reaction Status Date / Time No Known Allergies Allergy Verified 04/26/24 09:45 Social History Smoking Status: Current every day smoker tobacco type: e-cigarettes ROS ROS ED ROS Narrative Constitutional: No fever, positive chills. Feels dehydrated. Cardiovascular: No chest pain. No palpitations. No pedal edema. Respiratory: No cough, no shortness of breath. Abdominal: Positive for lower abdominal pain. Positive nausea and vomiting, 12 times this morning, nonbloody. Genitourinary: No dysuria. No hematuria. Musculoskeletal: No myalgias. No arthralgias. Neurologic: No headaches. No dizziness. No lightheadedness. EXAM Physical Exam Narrative Exam Narrative: Afebrile. Vital signs noted. Nontoxic-appearing. Cardiovascular examination reveals a regular rate and rhythm. Lungs are clear to auscultation bilaterally. Abdomen is soft with minimal tenderness to palpation in the bilateral lower quadrants, no rebound or guarding. Positive bowel sounds. Neurological examination is nonfocal and nonlateralizing. Moves all extremities. Const Vital Signs: 04/26/24 09:45 04/26/24 12:22 04/26/24 12:25 Temperature 97.5 F L 97.7 F L 97.7 F L Temperature Source Oral Oral Pulse Rate 73 69 68 Respiratory Rate 18 18 16 Blood Pressure 128/92 H 123/63 H 123/63 H Blood Pressure Mean 104 83 83 Blood Pressure Source Monitor Blood Pressure Position Semi-Fowlers Blood Pressure Location Right Arm Pulse Ox 100 100 99 Oxygen Delivery Method Room Air Room Air MDM MDM MDM Narrative Medical decision making narrative: I reviewed the patient's prior record/ED visit. He did have laboratory work which showed slight hyponatremia of 132. Differential diagnosis includes but not limited to gastroparesis versus gastroenteritis versus acute pancreatitis versus cholecystitis. Patient is not tachycardic or hypotensive so I am doubting acute dehydration as he was diagnosed with this yesterday. Comprehensive workup was pursued. I reviewed his laboratory work and his white count is now elevated at 14,000 compared to yesterday when it was around 11,000. Hemoglobin slightly hemoconcentrated at 17.8 with hematocrit 48.4, platelet count normal at 336. Sodium is low at 129 with potassium 3.1. BUN of 13 and creatinine 1.08. LFTs are grossly unremarkable. Lipase normal at 26 so I doubt pancreatitis. After 1 L of normal saline, patient states he still feels dehydrated. Repeat examination does show increased tenderness in the right lower quadrant. I reviewed the radiology report of the CT of the abdomen and pelvis with IV contrast which is concerning for mild inflammatory changes consistent with acute appendicitis. Given his repeat visit, elevated white count, and continued nausea and vomiting with lower abdominal pain, I started him on Zosyn and administered morphine and Zofran. Patient discussed with Dr. Harding with general surgery. According to Dr. Harding, after evaluation in the ED, patient had more left upper quadrant abdominal pain. He had discussed patient with Dr. Tay with the radiology department as well. It was not thought that he would require continued antibiotics and he does not plan to take him to the operating room as this was thought that it only may be early appendicitis. He recommended medical admission/observation for electrolyte abnormality correction and rehydration and he will follow. I then discussed the patient with Dr. Unique Dumas. Magnesium was added and she will assign the patient to observation on the general medical floor. Disposition is assigned observation, patient is in stable condition. History & Record Review Discussion w/independent historian: Patient Additional record(s) reviewed:: Prior ED visit and Prior labs Lab Data Attestation: I reviewed the patient's lab results. Labs: Laboratory Results - last 24 hr 04/26/24 04/26/24 10:00 11:41 WBC 14.0 H RBC 5.70 Hgb 17.8 H Hct 48.4 MCV 84.9 MCH 31.2 MCHC 36.8 H RDW Std Deviation 36.7 RDW Coeff of Carmelina 11.9 Plt Count 336 MPV 10.8 Immature Gran % (Auto) 0.500 Neut % (Auto) 81.4 H Lymph % (Auto) 12.2 L [place] % (Auto) 5.7 Eos % (Auto) 0.0 Baso % (Auto) 0.2 Absolute Neuts (auto) 11.4 H Absolute Lymphs (auto) 1.70 Nucleated RBC % 0 Sodium 129 L Potassium 3.1 L Chloride 90 L Carbon Dioxide 25.0 Anion Gap 13 BUN 13 Creatinine 1.08 Estim Creat Clear Calc 122.52 Est GFR (MDRD) Af Amer 110 Est GFR (MDRD) Non-Af 91 BUN/Creatinine Ratio 12.0 Glucose 133 H Calcium 10.2 H Total Bilirubin 1.10 H AST 32 ALT 57 Alkaline Phosphatase 68 Total Protein 9.0 H Albumin 4.9 Globulin 4.1 Albumin/Globulin Ratio 1.2 Lipase 26 Urine Color Straw Urine Clarity Clear Urine pH 8.0 Ur Specific [place] 1.010 Urine Protein 15 H Urine Glucose (UA) Normal Urine Ketones 15 H Urine Occult Blood Negative Urine Nitrite Negative Urine Bilirubin Negative Urine Urobilinogen 4 H Ur Leukocyte Esterase Negative Urine RBC 0 SEEN Urine WBC 0-5 SEEN Ur Squamous Epith Cells 0-5 SEEN Ur Transition Epith Cell 0-5 SEEN Urine Bacteria 2+ Urine Mucus 0 SEEN Radiography Diagnostic Testing: Clinical Impression(s) from Imaging Studies Abdomen/Pelvis CT 04/26/24 10:13 IMPRESSION: Early appendicitis should be ruled out. Clinical correlation recommended. One or more dose reduction techniques were used (e.g., Automated exposure control, adjustment of the mA and/or kV according to patient size, use of iterative reconstruction technique). Reading Location: [facility]- Management Discussion w/another healthcare provider: Hospitalist (Dr. Unique Dumas) and Aircraft Systems Technician (Dr. Harding, general surgery) Discharge Plan Triage Chief Complaint: Abd Pain ED Provider: Beto Dominguez Dx/Rx/DC Orders Prescriptions: No Action NK Primary Care Provider: Care Physician,No Primary Referrals: Care Physician,No Primary [Primary Care Provider] - Print Language: Arabic
[2024-04-26] MEDS: Ondansetron 4 MG/2 ML Vial IV ×2 (10:28→12:14)
[2024-04-26] MEDS: 0.9% Normal Saline (1000mL) 1,000 ML 999 ML IV (10:28)
[2024-04-26 11:01] LABS: ALB/GLOB Ratio 1.2 RATIO (0.9-2.4); AST(SGOT) 32 U/L (15-37); Alanine Aminotransfer ALT/SGPT 57 U/L (16-61); Albumin, Serum 4.9 g/dL (3.2-5.0); Alkaline Phosphatase 68 U/L (45-117); Anion Gap 13 (5-15); BUN 13 mg/dL (7-18); Calcium,Total 10.2 mg/dL (8.5-10.1); Chloride 90 mmol/L (98-107); Creatinine, Serum 1.08 mg/dL (0.70-1.30); EST Glomerular Filtration Rate 91 mL/min (>60); Est Glom Filt Rate - Afr Amer 110 mL/min (>60); Estimated Creatinine Clearance 122.52 ml/min; Globulin 4.1 g/dL (2.2-4.2); Glucose 133 mg/dL (74-106); Potassium 3.1 mmol/L (3.5-5.1); Sodium Level 129 mmol/L (136-145)
[2024-04-26 11:18] LABS: Absolute Neutrophil Count 11.4 X10^3/uL (2.0-7.7); Basophil# 0.03 X10^3/uL; Basophil% 0.2 % (0-1); Hematocrit 48.4 % (40-54); Hemoglobin 17.8 g/dL (13.0-16.5); Lymphocyte % 12.2 % (19-41); Mean Corp Hgb Conc 36.8 g/dL (32-36); Mean Corpuscular Hgb 31.2 pg (27.0-32.0); Mean Corpuscular Volume 84.9 fL (80-94); Mean Platelet Vol. 10.8 fl (6.2-12.0); Monocyte% 5.7 % (0-10); NRBC Flagged by Analyzer 0 % (0-5); Neutrophil # 11.37 X10^3/uL (2.7-7.7); Neutrophil % 81.4 % (47-70); Platelet Count 336 K/mm3 (150-450); RBC Distribution Width CV 11.9 % (11.6-14.6); RBC Distribution Width SD 36.7 fl (35.1-43.9)
[2024-04-26 11:20] LABS: Lipase 26 U/L (13-75)
[2024-04-26 11:49] LABS: Mucous, Urine 0 SEEN /hpf (<or=2+); Red Blood Cells-Urine 0 SEEN /hpf (0-5)
[2024-04-26] MEDS: Morphine 4 MG/ML Syringe IV (12:14)
[2024-04-26] MEDS: Piperacil/Tazobactam 3.375 GM in 0.9% Normal Saline (50mL MB+) 50 ML IV (12:14)
[2024-04-26 12:15] LABS: Color, Urine Straw (Yellow); Glucose, Dipstick Normal (Normal); Ketone-Dipstick 15 mg/dl (Negative); Leukocyte Esterase-Dipstick Negative /ul (Negative); Nitrite-Dipstick Negative (Negative); Occult Blood-Urine Negative /ul (Negative); Protein-Dipstick 15 mg/dl (Negative); Urine Bilirubin Dipstick Negative (Negative); Urine Clarity Clear (Clear); Urine Urobilinogen 4 mg/dl (Normal)
[2024-04-26 12:38] LABS: Bacteria 2+ /hpf (None Seen); Squamous Epithelial Cells - UA 0-5 SEEN /hpf (0-5); Transitional Epithelial - Ur 0-5 SEEN /hpf (0-5); White Blood Cells 0-5 SEEN /hpf (0-5)
[2024-04-26 13:37] LABS: Magnesium 2.1 mg/dL (1.6-2.6)
--- NOTE | 2024-04-26 13:49 | HP.PCM.HOS_ITS ---
HPI - General General Date of Admission: 04/26/24 Date of Service: 04/26/24 Chief Complaint: Abd pain, n/v HPI Narrative CAROLINE OWUSU, is a 24y/o M with no significant past medical history presented [facility] ED 04/26/2024 with 5 days of nausea and vomiting. Patient was in the ED yesterday but ultimately was stable and sent home however since then he has had continued vomiting and has been unable to keep anything down so he Re-presented. In the ED patient with white blood cell count of 14, red blood cell count 17.8, sodium of 129 with potassium of 3.1. On ED physician exam patient seem to have some right lower quadrant pain so CT abdomen pelvis obtained which showed possible early appendicitis. Patient given Zosyn and surgeon contacted. Surgeon evaluated and thought abdominal pain was more upper quadrants and this may not be appendicitis but recommended labs, no antibiotics, replace electrolytes and they will follow. Hospitalist contacted for admission. Patient evaluated bedside with family member present, reports that he has not had a bowel movement since Thursday but has been having nausea, vomiting, and some central abdominal pain since Thursday, this happened before he ate anything that day, no exacerbating or relieving factors. Before that people in the house did have a stomach flu and he does report he had a little bit of a stuffy nose and a little bit of a dry cough. [facility] Home Medications ?Medication ?Instructions ?Recorded ?Last Taken ?Type NK 04/26/24 Unknown History Allergy/AdvReac Type Severity Reaction Status Date / Time No Known Allergies Allergy Verified 04/26/24 09:45 Social History Smoking Status: Current every day smoker tobacco type: e-cigarettes ROS ROS Narrative General: Does feel like his had some chills but no measured fever HENT: Denies headache, has had a bit of a runny nose, denies sore throat EYES: Denies changes in vision Resp: Little bit of a dry cough, denies shortness of breath Cardiac: Denies chest pain GI: No bowel movement since Thursday, some periumbilical abdominal pain, nausea : Denies changes in urination Extremity: Denies swelling MSK: Denies weakness Neuro: Denies any numbness/tingling Heme: Denies any bleeding or bruising Skin: Denies rashes Psychiatric: No complaints voiced Vital Signs Vital Signs Vital Signs: 04/26/24 09:45 04/26/24 12:22 04/26/24 12:25 Temperature 97.5 F L 97.7 F L 97.7 F L Temperature Source Oral Oral Pulse Rate 73 69 68 Respiratory Rate 18 18 16 Blood Pressure 128/92 H 123/63 H 123/63 H Blood Pressure Mean 104 83 83 Blood Pressure Source Monitor Blood Pressure Position Semi-Fowlers Blood Pressure Location Right Arm Pulse Ox 100 100 99 Oxygen Delivery Method Room Air Room Air 04/26/24 13:29 Temperature 98.5 F Temperature Source Oral Pulse Rate 64 Respiratory Rate 15 Blood Pressure 112/59 L Blood Pressure Mean 76 Blood Pressure Source Blood Pressure Position Blood Pressure Location Pulse Ox 99 Oxygen Delivery Method Room Air Weight Weight: 80.739 kg Body Mass Index (BMI) 22.2 Physical Exam Narrative General: Alert, oriented, no apparent distress HEENT: Atraumatic, normocephalic Eyes: Anicteric, normal conjunctiva, extraocular movements grossly intact Neck: Supple Respiratory: Clear to auscultation bilaterally, normal respiratory effort Cardiovascular: Regular rate and rhythm GI: Soft but tender mostly around the umbilicus with some voluntary guarding but without rebound, involuntary guarding or rigidity Extremities: No edema Musculoskeletal: Moving all extremities Neuro: No overt focal neurological deficits Skin: No rashes appreciated Psych: Cooperative Results Lab / Micro Data 04/26/24 10:00 04/26/24 10:00 Labs: Laboratory Results - last 24 hr 04/26/24 10:00: WBC 14.0 H, RBC 5.70, Hgb 17.8 H, Hct 48.4, MCV 84.9, MCH 31.2, MCHC 36.8 H, RDW Std Deviation 36.7, RDW Coeff of Carmelina 11.9, Plt Count 336, MPV 10.8, Immature Gran % (Auto) 0.500, Neut % (Auto) 81.4 H, Lymph % (Auto) 12.2 L, [place] % (Auto) 5.7, Eos % (Auto) 0.0, Baso % (Auto) 0.2, Absolute Neuts (auto) 11.4 H, Absolute Lymphs (auto) 1.70, Nucleated RBC % 0, Sodium 129 L, Potassium 3.1 L, Chloride 90 L, Carbon Dioxide 25.0, Anion Gap 13, BUN 13, Creatinine 1.08, Estim Creat Clear Calc 122.52, Est GFR (MDRD) Af Amer 110, Est GFR (MDRD) Non-Af 91, BUN/Creatinine Ratio 12.0, Glucose 133 H, Calcium 10.2 H, Magnesium 2.1, Total Bilirubin 1.10 H, AST 32, ALT 57, Alkaline Phosphatase 68, Total Protein 9.0 H, Albumin 4.9, Globulin 4.1, Albumin/Globulin Ratio 1.2, Lipase 26 04/26/24 11:41: Urine Color Straw, Urine Clarity Clear, Urine pH 8.0, Ur Specific [place] 1.010, Urine Protein 15 H, Urine Glucose (UA) Normal, Urine Ketones 15 H, Urine Occult Blood Negative, Urine Nitrite Negative, Urine Bilirubin Negative, Urine Urobilinogen 4 H, Ur Leukocyte Esterase Negative, Urine RBC 0 SEEN, Urine WBC 0-5 SEEN, Ur Squamous Epith Cells 0-5 SEEN, Ur Transition Epith Cell 0-5 SEEN, Urine Bacteria 2+, Urine Mucus 0 SEEN Imaging Radiology Impression Abdomen/Pelvis CT 04/26/24 10:13 IMPRESSION: Early appendicitis should be ruled out. Clinical correlation recommended. One or more dose reduction techniques were used (e.g., Automated exposure control, adjustment of the mA and/or kV according to patient size, use of iterative reconstruction technique). Reading Location: [place] [id number] Assessment & Plan Assessment/Plan (1) Nausea and vomiting: (2) Abdominal pain: PLAN: Plan # Intractable nausea and vomiting -CT with possible early appendicitis, surgeon evaluated and recommended against continuing antibiotics and just monitoring with supportive care for now -Surgery consult -IV fluids -CLD, advance as tolerated unless otherwise specified by surgery -Is and os -Antiemetics/supportive care # Hyponatremia -Suspect due to dehydration given history -IV fluids -Will repeat #Hypokalemia -Replace -Repeat in the AM #DVT ppx: Charla Dumas MD Charges/Coding Visit Charges Inpatient E&M: 79505 Init Hosp L1
--- NOTE | 2024-04-26 14:50 | EX.PCM.CON.S ---
Assessment & Plan Assessment/Plan (1) Nausea, vomiting, and diarrhea: (2) Abdominal pain: PLAN: Plan I have been consulted in conjunction with Dr. Harding. He has independently evaluated this patient. Patient has a 4 day history of nausea, vomiting, diarrhea and abdominal pain. CT scan was obtained secondary to the abdominal pain. CT is questioning possible early appendicitis. Patient is not demonstrating typical appendicitis pain. He has been surrounded by a household full of people who had viral gastroenteritis. Patient may be demonstrating findings of an ileus type pain from his recent bout of gastroenteritis. Patient did receive a dose of Zosyn within the ED. He has also received pain medication which has helped with his pain. At this time, no surgical intervention is being recommended. We will continue to monitor this patient. If patient's abdominal pain becomes more localized in the right lower quadrant, we would then consider a laparoscopic appendectomy. Patient and patient's mother have had the opportunity to ask and have questions answered. Patient verbally understands and agrees with the plan. Thank you for allowing us to participate in this patient's care. HPI Consult Data Date of Consult: 04/26/24 HPI Narrative Reason for Consultation: Abdominal pain; possible early appendicitis HPI Narrative: CAROLINE OWUSU, is a 24 M who presents with a 4 day history of nausea, vomiting, diarrhea and abdominal pain. Patient states his symptoms started on Thursday. He notes going out to a restaurant with Friends. He was not able to eat anything as he was starting to feel sick. He noted that night he started vomiting with nausea and diarrhea. He states the abdominal pain started at that time as well. He notes the pain was crampy in nature. He states he has not been able to hold anything down since that time. He notes even water makes him vomit. He was in the ED yesterday and was given Zofran to take at home. Patient notes he has also felt feverish and chilling. Patient's mother is also present and adds that the whole household has went through the gastrointestinal bug. She notes for them it started last Thursday and has not stopped. Patient's current abdominal pain is in the left lower quadrant. He states his last bowel movement was on Thursday. He is able to pass flatus. He denies any abdominal surgeries. He is a current everyday smoker, e-cigarettes. He denies any other medical conditions and is not on any routine medications. CT scan of the ab/pel demonstrated mild inflammatory changes surrounding the appendix, which is deep in the right hemipelvis. Early appendicitis should be ruled out. Patient's WBC is 14.0, Hgb 17.8. Electrolytes are abnormal. Sodium 129 and Potassium 3.1. Slight bump in total bilirubin at 1.10. [facility] Home Medications ?Medication ?Instructions ?Recorded ?Last Taken ?Type NK 04/26/24 Unknown History Allergy/AdvReac Type Severity Reaction Status Date / Time No Known Allergies Allergy Verified 04/26/24 09:45 Social History Smoking Status: Current every day smoker tobacco type: e-cigarettes ROS Constitutional Constitutional: Reports systems reviewed and no addt'l complaints, except as documented Eyes Eyes: Reports systems reviewed and no addt'l complaints, except as documented ENT HEENT: Reports systems reviewed and no addt'l complaints, except as documented Cardiovascular Cardiovascular: Reports systems reviewed and no addt'l complaints, except as documented Respiratory/Chest Respiratory/Chest: Reports systems reviewed and no addt'l complaints, except as documented Gastrointestinal Gastrointestinal: Reports systems reviewed and no addt'l complaints, except as documented Genitourinary Genitourinary: Reports systems reviewed and no addt'l complaints, except as documented Musculoskeletal Musculoskeletal: Reports systems reviewed and no addt'l complaints, except as documented Integumentary Integumentary: Reports systems reviewed and no addt'l complaints, except as documented Neurologic Neurologic: Reports systems reviewed and no addt'l complaints, except as documented Psychiatric Psychiatric: Reports systems reviewed and no addt'l complaints, except as documented Endocrine Endocrinology: Reports systems reviewed and no addt'l complaints, except as documented Hematologic/Lymphatic Hematologic/Lymphatic: Reports systems reviewed and no addt'l complaints, except as documented Allergic/Immunologic Allergic/Immunologic: Reports systems reviewed and no addt'l complaints, except as documented Physical Exam Const alert, oriented x3 and no apparent distress General Appearance: ill appearing HEENT normocephalic and head/scalp atraumatic Eyes PERRL Neck full ROM Lymph Lymphatic: no lymphadenopathy noted Resp normal respiratory effort and clear to auscultation bilaterally Cardio regular rate and regular rhythm GI GI Narrative: Abdomen- soft, tenderness in the left lower quadrant and over top of the bladder/mid pelvic region. No right lower quadrant pain. Negative Obturator sign, psoas sign, and Rovsing sign. Hypoactive bowel sounds. no CVA tenderness Back/Spine no CVA tenderness Extremity normal to inspection Skin no rashes or lesions noted Neuro no focal motor deficits and no sensory deficits noted Psych mental status grossly normal Lab / Micro Data 04/26/24 10:00 04/26/24 15:05 Labs: Laboratory Results - last 24 hr 04/26/24 10:00: WBC 14.0 H, RBC 5.70, Hgb 17.8 H, Hct 48.4, MCV 84.9, MCH 31.2, MCHC 36.8 H, RDW Std Deviation 36.7, RDW Coeff of Carmel[place] 11.9, Plt Count 336, MPV 10.8, Immature Gran % (Auto) 0.500, Neut % (Auto) 81.4 H, Lymph % (Auto) 12.2 L, [place] % (Auto) 5.7, Eos % (Auto) 0.0, Baso % (Auto) 0.2, Absolute Neuts (auto) 11.4 H, Absolute Lymphs (auto) 1.70, Nucleated RBC % 0, Sodium 129 L, Potassium 3.1 L, Chloride 90 L, Carbon Dioxide 25.0, Anion Gap 13, BUN 13, Creatinine 1.08, Estim Creat Clear Calc 122.52, Est GFR (MDRD) Af Amer 110, Est GFR (MDRD) Non-Af 91, BUN/Creatinine Ratio 12.0, Glucose 133 H, Calcium 10.2 H, Magnesium 2.1, Total Bilirubin 1.10 H, AST 32, ALT 57, Alkaline Phosphatase 68, Total Protein 9.0 H, Albumin 4.9, Globulin 4.1, Albumin/Globulin Ratio 1.2, Lipase 26 04/26/24 11:41: Urine Color Straw, Urine Clarity Clear, Urine pH 8.0, Ur Specific [place] 1.010, Urine Protein 15 H, Urine Glucose (UA) Normal, Urine Ketones 15 H, Urine Occult Blood Negative, Urine Nitrite Negative, Urine Bilirubin Negative, Urine Urobilinogen 4 H, Ur Leukocyte Esterase Negative, Urine RBC 0 SEEN, Urine WBC 0-5 SEEN, Ur Squamous Epith Cells 0-5 SEEN, Ur Transition Epith Cell 0-5 SEEN, Urine Bacteria 2+, Urine Mucus 0 SEEN Imaging Radiology Impression Abdomen/Pelvis CT 04/26/24 10:13 IMPRESSION: Early appendicitis should be ruled out. Clinical correlation recommended. One or more dose reduction techniques were used (e.g., Automated exposure control, adjustment of the mA and/or kV according to patient size, use of iterative reconstruction technique). Reading Location: [facility] Charges/Coding Visit Charges Inpatient E&M: 86105 Init Hosp L2
[2024-04-26 15:32] LABS: Anion Gap 9 (5-15); BUN 10 mg/dL (7-18); BUN/Creat Ratio 12.6 RATIO (10-20); Calcium,Total 8.4 mg/dL (8.5-10.1); Chloride 96 mmol/L (98-107); Creatinine, Serum 0.79 mg/dL (0.70-1.30); EST Glomerular Filtration Rate 130 mL/min (>60); Est Glom Filt Rate - Afr Amer 157 mL/min (>60); Glucose 96 mg/dL (74-106); Potassium 3.1 mmol/L (3.5-5.1); Sodium Level 132 mmol/L (136-145)
[2024-04-26] MEDS: Ketorolac 30 MG/ML Syringe IV (16:52)
[2024-04-26] MEDS: 0.9% Normal Saline (1000mL) 1,000 ML 100 ML IV (16:53)
[2024-04-26] MEDS: Potassium Chloride 10mEq/100mL 10 MEQ/100 ML IV.SOLN. 100 MEQ IV BOLUS ×4 (16:53→21:04)
[2024-04-26] MEDS: 0.9% Saline Lock 10 ML Syringe IV (16:53)
[2024-04-27 03:18] VITALS: BP 114/64; PULSE 55; RESP 16; TEMP 36.7; O2SAT 99
[2024-04-27 05:34] LABS: Absolute Lymphocyte Count 3.03 X10^3/uL (0.83-4.51); Basophil# 0.03 X10^3/uL; Basophil% 0.3 % (0-1); Eosinophil# 0.12 X10^3/uL; Eosinophils% 1.3 % (0-5); Hematocrit 38.5 % (40-54); Hemoglobin 13.8 g/dL (13.0-16.5); Lymphocyte # 3.03 X10^3/ul (0.83-4.51); Lymphocyte % 33.5 % (19-41); Mean Corp Hgb Conc 35.8 g/dL (32-36); Mean Corpuscular Hgb 31.2 pg (27.0-32.0); Mean Corpuscular Volume 87.1 fL (80-94); Mean Platelet Vol. 10.3 fl (6.2-12.0); Monocyte# 0.83 X10^3/uL; Monocyte% 9.2 % (0-10); NRBC Flagged by Analyzer 0 % (0-5); Neutrophil % 55.3 % (47-70); Platelet Count 231 K/mm3 (150-450); RBC Distribution Width CV 11.9 % (11.6-14.6); RBC Distribution Width SD 38.3 fl (35.1-43.9); Red Blood Count 4.42 M/mm3 (4.6-6.2); White Blood Count 9.1 K/mm3 (4.4-11.0)
[2024-04-27 05:57] LABS: Anion Gap 8 (5-15); BUN 10 mg/dL (7-18); BUN/Creat Ratio 12.7 RATIO (10-20); Calcium,Total 8.6 mg/dL (8.5-10.1); Chloride 100 mmol/L (98-107); Creatinine, Serum 0.79 mg/dL (0.70-1.30); EST Glomerular Filtration Rate 130 mL/min (>60); Est Glom Filt Rate - Afr Amer 158 mL/min (>60); Glucose 94 mg/dL (74-106); Magnesium 2.4 mg/dL (1.6-2.6); Potassium 3.4 mmol/L (3.5-5.1); Sodium Level 134 mmol/L (136-145)
[2024-04-27] MEDS: 0.9% Normal Saline (1000mL) 1,000 ML 100 ML IV (07:04)
--- NOTE | 2024-04-27 08:01 | PCM.PN.HOSP ---
Reason for Visit Reason for Visit: Diagnoses Unspecified abdominal pain (04/26/24) Nausea with vomiting, unspecified (04/26/24) Diarrhea, unspecified (04/26/24) Objective Data Objective Data Vital Signs: Vital Signs Temp Pulse Resp BP Pulse Ox O2 Del Method 98.1 F 55 L 16 114/64 99 Room Air 04/27/24 03:18 04/27/24 03:18 04/27/24 03:18 04/27/24 03:18 04/27/24 03:18 04/27/24 03:18 Oxygen Delivery Method Room Air Weight: 178 lb Body Mass Index (BMI) 22.2 Intake & Output: Intake and Output for Last 24 Hours 04/25/24 04/26/24 04/27/24 23:59 23:59 23:59 Intake Total 1550.00 / 1550.00 1291.67 / 1291.67 Output Total 50 / 50 Balance 1550.00 / 1550.00 1241.67 / 1241.67 Lab / Micro Data 04/27/24 04:40 04/27/24 04:40 Labs: Laboratory Results - last 24 hr 04/26/24 10:00: WBC 14.0 H, RBC 5.70, Hgb 17.8 H, Hct 48.4, MCV 84.9, MCH 31.2, MCHC 36.8 H, RDW Std Deviation 36.7, RDW Coeff of [place] 11.9, Plt Count 336, MPV 10.8, Immature Gran % (Auto) 0.500, Neut % (Auto) 81.4 H, Lymph % (Auto) 12.2 L, [place] % (Auto) 5.7, Eos % (Auto) 0.0, Baso % (Auto) 0.2, Absolute Neuts (auto) 11.4 H, Absolute Lymphs (auto) 1.70, Nucleated RBC % 0, Sodium 129 L, Potassium 3.1 L, Chloride 90 L, Carbon Dioxide 25.0, Anion Gap 13, BUN 13, Creatinine 1.08, Estim Creat Clear Calc 122.52, Est GFR (MDRD) Af Amer 110, Est GFR (MDRD) Non-Af 91, BUN/Creatinine Ratio 12.0, Glucose 133 H, Calcium 10.2 H, Magnesium 2.1, Total Bilirubin 1.10 H, AST 32, ALT 57, Alkaline Phosphatase 68, Total Protein 9.0 H, Albumin 4.9, Globulin 4.1, Albumin/Globulin Ratio 1.2, Lipase 26 04/26/24 11:41: Urine Color Straw, Urine Clarity Clear, Urine pH 8.0, Ur Specific [place] 1.010, Urine Protein 15 H, Urine Glucose (UA) Normal, Urine Ketones 15 H, Urine Occult Blood Negative, Urine Nitrite Negative, Urine Bilirubin Negative, Urine Urobilinogen 4 H, Ur Leukocyte Esterase Negative, Urine RBC 0 SEEN, Urine WBC 0-5 SEEN, Ur Squamous Epith Cells 0-5 SEEN, Ur Transition Epith Cell 0-5 SEEN, Urine Bacteria 2+, Urine Mucus 0 SEEN 04/26/24 15:05: Sodium 132 L, Potassium 3.1 L, Chloride 96 L, Carbon Dioxide 27.0, Anion Gap 9, BUN 10, Creatinine 0.79, Estim Creat Clear Calc 167.50, Est GFR (MDRD) Af Amer 157, Est GFR (MDRD) Non-Af 130, BUN/Creatinine Ratio 12.6, Glucose 96, Calcium 8.4 L 04/27/24 04:40: WBC 9.1, RBC 4.42 L, Hgb 13.8, Hct 38.5 L, MCV 87.1, MCH 31.2, MCHC 35.8, RDW Std Deviation 38.3, RDW Coeff of [place] 11.9, Plt Count 231, MPV 10.3, Immature Gran % (Auto) 0.400, Neut % (Auto) 55.3, Lymph % (Auto) 33.5, [place] % (Auto) 9.2, Eos % (Auto) 1.3, Baso % (Auto) 0.3, Absolute Neuts (auto) 5.0, Absolute Lymphs (auto) 3.03, Nucleated RBC % 0, Sodium 134 L, Potassium 3.4 L, Chloride 100, Carbon Dioxide 26.0, Anion Gap 8, BUN 10, Creatinine 0.79, Estim Creat Clear Calc 167.50, Est GFR (MDRD) Af Amer 158, Est GFR (MDRD) Non-Af 130, BUN/Creatinine Ratio 12.7, Glucose 94, Calcium 8.6, Magnesium 2.4 Radiography Diagnostic Testing: Radiology Impression Abdomen/Pelvis CT 04/26/24 10:13 IMPRESSION: Early appendicitis should be ruled out. Clinical correlation recommended. One or more dose reduction techniques were used (e.g., Automated exposure control, adjustment of the mA and/or kV according to patient size, use of iterative reconstruction technique). [facility] Physical Exam Narrative Seen and examined. Patient extremities other members of her family had similar symptoms but they cannot spontaneously monitor and he got more sick. Still vomiting and diffuse nonspecific abdominal pain Physical exam General: Alert, Oriented x3, Cooperative, dehydrated HEENT: Atraumatic, PERRLA, EOMI, Normocephalic Oral: Oral mucosa dry no Gingival or Mucosal Lesions/ Ulcerations Neck: Supple, No JVD, Negative Carotid Bruits Chest wall/Lungs: Air entry diminished in bilateral lung bases. No crepitation/rhonchi Cardiovascular: Regular rate, Regular Rhythm, Normal S1, Normal S2, No M/G/R Abdomen: Bowel Sounds Present, Soft, Non Tender, Non-Distended. No guarding or rigidity : No dysuria. No renal angle tenderness. No suprapubic tenderness. Extremities: No edema, Capillary Refill Less than 3 Seconds Skin: No rashes, No breakdown Musculoskeletal: No Tenderness to Palpation of Joints or Extremities Neurological: Cranial nerves II-XII grossly intact, DTR 2+/4. No acute focal neurological deficit. Psych/Mental Status: Flat affect Assessment & Plan Assessment/Plan (1) Nausea and vomiting: (2) Abdominal pain: (3) Viral gastroenteritis: PLAN: Plan 24-year-old gentleman was admitted with 5 days of nausea vomiting and diarrhea. Diarrhea has resolved but patient was dehydrated and he states vomiting at least 12 times in last 24 hours. [place] subjective fever with chills. # Intractable nausea and vomiting probably nonspecific viral gastroenteritis: Patient admitted MedSurg floor. Heart rate and blood pressure in normal range in ED.tion. -CT with possible early appendicitis, surgeon evaluated and recommended against continuing antibiotics and just monitoring with supportive care for now. Conservative management with IV fluid IV fluid resuscitation. Supportive treatment with antiemetics. 2. Nonspecific generalized abdominal pain: Patient also had left upper quadrant pain, on exam did not elicit tenderness rigidity or guarding. Patient had diarrhea/movement for 2 days and then since last 4-5 days is having constipation. Passing flatus The initial CT raise suspicion of early appendicitis but was evaluated by surgeon and he felt left upper quadrant pain. On exam patient had LUQ tenderness not RLQ. # Hyponatremia -Suspect due to dehydration given history. Sodium improved from 129-134 #Hypokalemia: On potassium replacement. K3.1 improved to 3.4 serum magnesium level normal. #DVT ppx: SCDs Charges/Coding Visit Charges Inpatient E&M: 99585 Subs Hosp L2
[2024-04-27 08:05] VITALS: BP 111/62; PULSE 57; RESP 14; TEMP 36.6; O2SAT 98
--- NOTE | 2024-04-27 08:55 | PCM.PN.SRG ---
Subjective Subjective Patient seen and examined during AM rounds. He is found resting in bed. He declares that he is feeling better today. He is still complaining, however, that he has not been able to defecate. Lastly he reports feeling as though there is a lot moving around inside of his abdomen. Objective Data Objective Data Vital Signs: Vital Signs Temp Pulse Resp BP Pulse Ox O2 Del Method 97.8 F 57 L 14 111/62 98 Room Air 04/27/24 08:05 04/27/24 08:05 04/27/24 08:05 04/27/24 08:05 04/27/24 08:05 04/27/24 08:05 Oxygen Delivery Method Room Air Weight: 178 lb Body Mass Index (BMI) 22.2 Intake & Output: Intake and Output for Last 24 Hours 04/25/24 04/26/24 04/27/24 23:59 23:59 23:59 Intake Total 1550.00 / 1550.00 1291.67 / 1291.67 Output Total 50 / 50 Balance 1550.00 / 1550.00 1241.67 / 1241.67 Lab / Micro Data 04/27/24 04:40 04/27/24 04:40 Labs: Laboratory Results - last 24 hr 04/26/24 10:00: WBC 14.0 H, RBC 5.70, Hgb 17.8 H, Hct 48.4, MCV 84.9, MCH 31.2, MCHC 36.8 H, RDW Std Deviation 36.7, RDW Coeff of [place]el[place] 11.9, Plt Count 336, MPV 10.8, Immature Gran % (Auto) 0.500, Neut % (Auto) 81.4 H, Lymph % (Auto) 12.2 L, [place] % (Auto) 5.7, Eos % (Auto) 0.0, Baso % (Auto) 0.2, Absolute Neuts (auto) 11.4 H, Absolute Lymphs (auto) 1.70, Nucleated RBC % 0, Sodium 129 L, Potassium 3.1 L, Chloride 90 L, Carbon Dioxide 25.0, Anion Gap 13, BUN 13, Creatinine 1.08, Estim Creat Clear Calc 122.52, Est GFR (MDRD) Af Amer 110, Est GFR (MDRD) Non-Af 91, BUN/Creatinine Ratio 12.0, Glucose 133 H, Calcium 10.2 H, Magnesium 2.1, Total Bilirubin 1.10 H, AST 32, ALT 57, Alkaline Phosphatase 68, Total Protein 9.0 H, Albumin 4.9, Globulin 4.1, Albumin/Globulin Ratio 1.2, Lipase 26 04/26/24 11:41: Urine Color Straw, Urine Clarity Clear, Urine pH 8.0, Ur Specific [place] 1.010, Urine Protein 15 H, Urine Glucose (UA) Normal, Urine Ketones 15 H, Urine Occult Blood Negative, Urine Nitrite Negative, Urine Bilirubin Negative, Urine Urobilinogen 4 H, Ur Leukocyte Esterase Negative, Urine RBC 0 SEEN, Urine WBC 0-5 SEEN, Ur Squamous Epith Cells 0-5 SEEN, Ur Transition Epith Cell 0-5 SEEN, Urine Bacteria 2+, Urine Mucus 0 SEEN 04/26/24 15:05: Sodium 132 L, Potassium 3.1 L, Chloride 96 L, Carbon Dioxide 27.0, Anion Gap 9, BUN 10, Creatinine 0.79, Estim Creat Clear Calc 167.50, Est GFR (MDRD) Af Amer 157, Est GFR (MDRD) Non-Af 130, BUN/Creatinine Ratio 12.6, Glucose 96, Calcium 8.4 L 04/27/24 04:40: WBC 9.1, RBC 4.42 L, Hgb 13.8, Hct 38.5 L, MCV 87.1, MCH 31.2, MCHC 35.8, RDW Std Deviation 38.3, RDW Coeff of [place]el[place] 11.9, Plt Count 231, MPV 10.3, Immature Gran % (Auto) 0.400, Neut % (Auto) 55.3, Lymph % (Auto) 33.5, [place] % (Auto) 9.2, Eos % (Auto) 1.3, Baso % (Auto) 0.3, Absolute Neuts (auto) 5.0, Absolute Lymphs (auto) 3.03, Nucleated RBC % 0, Sodium 134 L, Potassium 3.4 L, Chloride 100, Carbon Dioxide 26.0, Anion Gap 8, BUN 10, Creatinine 0.79, Estim Creat Clear Calc 167.50, Est GFR (MDRD) Af Amer 158, Est GFR (MDRD) Non-Af 130, BUN/Creatinine Ratio 12.7, Glucose 94, Calcium 8.6, Magnesium 2.4 Radiography Diagnostic Testing: Radiology Impression Abdomen/Pelvis CT 04/26/24 10:13 IMPRESSION: Early appendicitis should be ruled out. Clinical correlation recommended. One or more dose reduction techniques were used (e.g., Automated exposure control, adjustment of the mA and/or kV according to patient size, use of iterative reconstruction technique). Reading Location: [facility] Physical Exam Const oriented x3 and no apparent distress Resp normal respiratory effort GI GI Narrative: Slender, nondistended, soft, nontender to palpation x 4 quadrants Assessment & Plan Assessment/Plan (1) Nausea, vomiting, and diarrhea: (2) Abdominal pain: PLAN: Plan Patient is seen hospital day 2 for admission for significant electrolyte abnormality related to dehydration and inability to tolerate p.o. intake as well as follow-up of ER evaluation where CT scan was equivocal for acute appendicitis. Patient has clinically improved today and has no abdominal tenderness?further decreasing any suspicion for appendicitis. Based on his history, patient instead is battling a at least moderately severe case of gastroenteritis?the same self-limited illness that be fell all of his family. At this point continue to recommend supportive care for this diagnosis and recommend against any use of antibiotics. No surgical intervention planned and once patient is proven to be able to tolerate oral intake could be considered suitable for discharge to home from a surgical standpoint. Defer to patient's primary hospitalist team. Francisco Harding MD General Surgery Endocrine Surgery Pager: [facility] [address] [place] [address], [address] [place] [address] Office: [phone] Charges/Coding Visit Charges Inpatient E&M: 23377 Subs Hosp L2
[2024-04-27] MEDS: Ondansetron 4 MG/2 ML Vial IV (09:36)
[2024-04-27] MEDS: Ketorolac 30 MG/ML Syringe IV (09:43)
[2024-04-27] MEDS: FLU VACC 2024-25(6MOS UP)/PF 45 MCG/0.5 ML SYRINGE IM (09:49)
[2024-04-27 14:33] VITALS: BP 132/77; PULSE 65; RESP 16; TEMP 37.1; O2SAT 99
[2024-04-27] MEDS: 0.9% Saline Lock 10 ML Syringe IV (14:40)
[2024-04-27] MEDS: Metoclopramide 10 MG/2 ML Vial 5 MG IV (14:40)
[2024-04-27] MEDS: Morphine 2 MG/ML Syringe IV (14:49)
--- NOTE | 2024-04-27 14:51 | CASEMGMT ---
Social Work SW met with pt and discussed self pay status. [facility] SW provided pt with written information on Prescription Assistance, [employer], Lee Silber as well as Eve Sy and a PCP list. Pt denies further needs at this time. AARON Woodruff
--- NOTE | 2024-04-27 16:11 | NURSING ---
All documentation by nursing resident Corrina Smith reviewed by nursing associate Meera CHAPARRO, RN.
[2024-04-27 17:00] VITALS: BP 103/49; PULSE 66; RESP 16; TEMP 36.6; O2SAT 99
[2024-04-27] MEDS: KCL 40mEq in 0.9% NS 40 MEQ/1,000 ML IV.SOLN 125 MEQ IV (17:15)
[2024-04-27 20:52] VITALS: BP 116/53; PULSE 64; RESP 17; TEMP 36.4; O2SAT 100
[2024-04-28] MEDS: KCL 40mEq in 0.9% NS 40 MEQ/1,000 ML IV.SOLN 125 MEQ IV (00:51)
[2024-04-28 02:24] VITALS: BP 110/63; PULSE 56; RESP 17; TEMP 36.4; O2SAT 99
[2024-04-28 07:37] LABS: Anion Gap 7 (5-15); BUN 10 mg/dL (7-18); BUN/Creat Ratio 14.6 RATIO (10-20); Calcium,Total 8.5 mg/dL (8.5-10.1); Chloride 105 mmol/L (98-107); Creatinine, Serum 0.68 mg/dL (0.70-1.30); EST Glomerular Filtration Rate 154 mL/min (>60); Est Glom Filt Rate - Afr Amer 186 mL/min (>60); Estimated Creatinine Clearance 194.59 ml/min; Glucose 86 mg/dL (74-106); Potassium 3.8 mmol/L (3.5-5.1); Sodium Level 136 mmol/L (136-145)
[2024-04-28 08:00] VITALS: BP 128/79; PULSE 58; RESP 18; TEMP 36.9; O2SAT 99
[2024-04-28] MEDS: Metoclopramide 10 MG/2 ML Vial 5 MG IV (10:45)
[2024-04-28] MEDS: proMETHazine 25 MG/ML Syringe 12.5 MG IM (12:14)
--- NOTE | 2024-04-28 12:40 | PCM.PN.HOSP ---
Reason for Visit Reason for Visit: Diagnoses Viral intestinal infection, unspecified (04/26/24) Unspecified abdominal pain (04/26/24) Nausea with vomiting, unspecified (04/26/24) Diarrhea, unspecified (04/26/24) Subjective Subjective Saw patient at bedside's morning. Patient was anxious appearing and unfortunately had just had an episode of vomiting when I saw him. He had tried drinking a smoothie but had nausea shortly after with vomiting. Has been able to keep some other liquids down. Has had some mild abdominal discomfort with cramping as well. Denies any significant diarrhea. Denies any fevers or chills. Objective Data Objective Data Vital Signs: Vital Signs Temp Pulse Resp BP Pulse Ox O2 Del Method 98.5 F 58 L 18 128/79 H 99 Room Air 04/28/24 08:00 04/28/24 08:00 04/28/24 08:00 04/28/24 08:00 04/28/24 08:00 04/28/24 08:00 Oxygen Delivery Method Room Air Weight: 80.739 kg Body Mass Index (BMI) 22.2 Intake & Output: Intake and Output for Last 24 Hours 04/26/24 04/27/24 04/28/24 23:59 23:59 23:59 Intake Total 1550.00 / 1550.00 4591.67 / 4591.67 3050 / 3050 Output Total 2425 / 2425 1590 / 1590 Balance 1550.00 / 1550.00 2166.67 / 2166.67 1460 / 1460 Lab / Micro Data 04/27/24 04:40 04/28/24 05:42 Labs: Laboratory Results - last 24 hr 04/28/24 05:42: Sodium 136, Potassium 3.8, Chloride 105, Carbon Dioxide 24.0, Anion Gap 7, BUN 10, Creatinine 0.68 L, Estim Creat Clear Calc 194.59, Est GFR (MDRD) Af Amer 186, Est GFR (MDRD) Non-Af 154, BUN/Creatinine Ratio 14.6, Glucose 86, Calcium 8.5 Physical Exam Const alert, oriented x3 and average body habitus Constitutional Narrative: Young male, mildly uncomfortable appearing due to ongoing nausea, otherwise laying back in bed and answering questions appropriately. General Appearance: cooperative HEENT normocephalic, head/scalp atraumatic, hearing grossly normal bilaterally, nasal mucous membranes and turbinates normal and moist oral mucous membranes Eyes PERRL, EOMs intact bilaterally and conjunctivae normal Neck full ROM Chest inspection of chest normal Resp normal respiratory effort, normal air movement, no use of accessory muscles and clear to auscultation bilaterally Cardio regular rate, regular rhythm, no murmurs and peripheral pulses 2+ throughout GI GI Narrative: Mild diffuse tenderness to palpation but otherwise soft, nondistended and with normal bowel sounds. Back/Spine normal ROM Extremity normal to inspection, full ROM and no pedal edema Skin no rashes or lesions noted Psych mental status grossly normal Mood & Affect: anxious Assessment & Plan Assessment/Plan (1) Nausea and vomiting: (2) Viral gastroenteritis: PLAN: Plan Patient is a 24-year-old male who presented [facility] ED on 04/26/24 with abdominal pain and nausea with vomiting. 1. Intractable nausea and vomiting with suspected viral gastroenteritis and mild generalized abdominal pain ? Surgery followed. CT scan on admit with concern for acute appendicitis but surgery noted negative psoas and obturator signs and that otherwise clinically this presentation did not fit with acute appendicitis. Not able to produce stool sample while here. No need for antibiotics at this time. Continue to treat symptomatically and advance diet as tolerated. Hopeful for discharge home in the next 1 to 2 days. 2. Hyponatremia, improved ? Sodium 129 on admit, improved with IV fluid resuscitation. 3. Hypokalemia, improved ? Potassium 2.9 on admit, improved with repletion. DVT prophylaxis: Low risk, ambulate CODE STATUS: Full code, verified Expected disposition: Home, 1 to 2 days Total clinical time spent by myself addressing the patient's medical issues, reviewing all the data, and collaborating with patient's care team: 35 minutes. Charges/Coding Visit Charges Inpatient E&M: 28434 Subs Hosp L2
[2024-04-28 13:52] VITALS: BP 125/71; PULSE 69; RESP 17; TEMP 36.7; O2SAT 97
[2024-04-28 15:17] VITALS: RESP 17
--- NOTE | 2024-04-28 15:52 | NURSING ---
aware per Heydi Lugo RN and Iesha FIGUEROA pt refusing senokot.
[2024-04-28] MEDS: proCHLORPERazine 10 MG/2 ML Vial 5 MG IV (16:53)
[2024-04-28] MEDS: 0.9% Saline Lock 10 ML Syringe IV (16:54)
[2024-04-28] MEDS: Senna/Docusate Sodium 1 Tablet PO (16:54)
[2024-04-28 19:42] VITALS: BP 121/58; PULSE 58; RESP 18; TEMP 37.4; O2SAT 98
[2024-04-29 06:28] VITALS: BP 109/62; PULSE 63; RESP 16; TEMP 36.8; O2SAT 100
[2024-04-29 07:08] LABS: Anion Gap 8 (5-15); BUN 8 mg/dL (7-18); Calcium,Total 9.2 mg/dL (8.5-10.1); Chloride 102 mmol/L (98-107); Creatinine, Serum 0.73 mg/dL (0.70-1.30); EST Glomerular Filtration Rate 142 mL/min (>60); Est Glom Filt Rate - Afr Amer 172 mL/min (>60); Estimated Creatinine Clearance 181.26 ml/min; Glucose 96 mg/dL (74-106); Potassium 3.4 mmol/L (3.5-5.1); Sodium Level 135 mmol/L (136-145)
[2024-04-29] MEDS: Potassium Chloride Oral Tablet 20 MEQ 40 MEQ PO (08:35)
[2024-04-29] MEDS: Senna/Docusate Sodium 1 Tablet PO (08:36)
[2024-04-29 08:39] VITALS: BP 142/92; PULSE 64; RESP 14; TEMP 36.3; O2SAT 100
[2024-04-29] MEDS: Lactated Ringers 1,000 ML 999 ML IV (10:51)
--- NOTE | 2024-04-29 11:10 | CASEMGMT ---
GEENA ESTEBAN Assessment Face to Face with patient for initial transition planning/care coordination assessment. RN CM introduced self and role at [facility], pt voices understanding. Pt is A&Ox4 and is resting comfortably in bed and is calm. Care providers, pharmacy, and demographics verified. Admitting dx: N/V LACE Strata: 2 PCP: No PCP. Pt has been given a PCP list already and denies concerns Specialists: Denies Preferred Pharmacy: This RN CM inquired if pt would like to go through [facility], pt states he prefers [facility] Insurance: SP. Noriega has seen the pt and the pt applied for [facility] Prescription Benefit: None, educated about Good Rx LNOK: Joyce and Miguel A Lagos (Mom and Dad) Living Arrangements: Pt lives with his parents in a 2 story home with a flat entrance ADLs/IADLs: Ind Transportation: Parents DME: Denies HHC/SNF: denies Pt?s goal: Home Plan: Home, no needs. Follow Rx costs. 6-Click score is 24. Pt denies needs moving forward and states that he feels safe returning home with his parents once medically ready. Report given to JUAN SEAY CM. Kalen Lagos RN, CM
--- NOTE | 2024-04-29 11:30 | DCINST_ITS ---
Discharge Instructions Diet Discharge Diet: No restrictions DC O2, CPAP, BIPAP needs Home O2 Discharge instructions: No Dressing / Incision Discharge Activity: No Restrictions Follow Up Care Test Results: Test results from this visit will be discussed in further detail at your follow- up appointment, if applicable. Discharge Plan Admission Admit Date/Time: 04/28/24 12:40 Primary Reason for Your Visit: nausea with vomiting and abdominal pain Attending Provider: Eleazar Bardales Primary Care Provider: Care Physician,No Primary Consulting Providers: Francisco Harding; Unique Dumas; Cleve Garza Discharge Orders/Prescriptions Prescriptions: New ondansetron 4 mg tablet,disintegrating 4 mg PO Q8H PRN (Reason: nausea and vomiting) 5 Days Qty: 15 0RF No Action NK Referrals / Follow Up: Care Physician,No Primary [Primary Care Provider] - Disposition Disposition (needs filled in before D/C Order can be placed): Home, Self Care
--- NOTE | 2024-04-29 11:32 | PCM.DC.SUM ---
Providers Date of Admission: 04/26/24 Date of Discharge: 04/29/24 Primary Care Physician: Negar Primary Care Phys Consultations 04/26/24 15:42 Consult: General Surgery Routine Consulting Provider: Francisco Harding Reason for Consult: ?early appedicitis EMERGENT Consult: No MD Notified: Yes Date Notified: 04/26/24 Time Notified: 13:55 Method of Notification: ED Physician Initiated Reason For Visit: INTRACTABEL N/V, ? EARLY APPENDICITIS Diagnosis Discharge Diagnosis (1) Nausea and vomiting: Status: Acute Code(s): R11.2 - Nausea with vomiting, unspecified (2) Viral gastroenteritis: Status: Acute Code(s): A08.4 - Viral intestinal infection, unspecified Medications at Discharge Home Medications NK 04/26/24 ondansetron 4 mg disintegrating tablet 4 mg PO Q8H PRN nausea and vomiting 5 days #15 tabs 04/29/24 Hospital Course Operations None Procedures - (CT abdomen pelvis) Summary of Care Provided Minutes Spent on Discharge: 35 Hospital Course: Patient is a 24-year-old male who presented [facility] ED on 04/26/24 with abdominal pain and nausea with vomiting. Hospital course as noted below. Patient discharged home in stable condition on 04/29. 1. Intractable nausea and vomiting with suspected viral gastroenteritis and mild generalized abdominal pain ? Surgery followed. CT scan on admit with concern for acute appendicitis but surgery noted negative psoas and obturator signs and that otherwise clinically this presentation did not fit with acute appendicitis. Not able to produce stool sample while here. No need for antibiotics. Treated symptomatically while inpatient and advanced diet as tolerated. Stable for discharge home on 04/29. Send short prescription of Zofran as needed on discharge. 2. Hyponatremia, improved ? Sodium 129 on admit, improved with IV fluid resuscitation. 3. Hypokalemia, improved ? Potassium 2.9 on admit, improved with repletion. Total clinical time spent by myself addressing the patient's medical issues, reviewing all the data, and collaborating with patient's care team: 35 minutes. Physical Exam Const alert, oriented x3 and average body habitus Constitutional Narrative: Young male, mildly fatigued appearing but otherwise sitting up comfortably in bed, conversing normally, in no acute distress. Improved from admission. General Appearance: cooperative HEENT normocephalic, head/scalp atraumatic, hearing grossly normal bilaterally, nasal mucous membranes and turbinates normal and moist oral mucous membranes Eyes PERRL, EOMs intact bilaterally and conjunctivae normal Neck full ROM Chest inspection of chest normal Resp normal respiratory effort, normal air movement, no use of accessory muscles and clear to auscultation bilaterally Cardio regular rate, regular rhythm, no murmurs and peripheral pulses 2+ throughout GI normal to inspection, nondistended, normoactive bowel sounds, soft to palpation, non-tender and non-distended Back/Spine normal ROM Extremity normal to inspection, full ROM and no pedal edema Skin no rashes or lesions noted Psych mental status grossly normal Weight / BMI Weight Weight: 80.739 kg Body Mass Index (BMI) 22.2 ABG / Lab / Microbiology Data 04/27/24 04:40 04/29/24 05:54 Laboratory: Laboratory Results - last 24 hr 04/29/24 05:54: Sodium 135 L, Potassium 3.4 L, Chloride 102, Carbon Dioxide 26.0, Anion Gap 8, BUN 8, Creatinine 0.73, Estim Creat Clear Calc 181.26, Est GFR (MDRD) Af Amer 172, Est GFR (MDRD) Non-Af 142, BUN/Creatinine Ratio 11.0, Glucose 96, Calcium 9.2 D/C Instructions Discharge Diet: No restrictions DC O2, CPAP, BIPAP Needs Home O2 Discharge instructions: No Meaningful Use Info Meaningful Use Meaningful Use Diagnoses (Choose all that apply): None applicable Ischemic Stroke Statin Dosing Therapy Reference: STATIN DOSE THERAPY REFERENCE: * Patients > 75 years receive moderate or high dose statin therapy. * Patients 75 years or YOUNGER should receive HIGH intensity statin dose unless contraindicated. You will be required to document reason for non-treatment if statin daily dose does not meet guidelines. HIGH DOSE STATIN THERAPY DAILY Atorvastatin > than or = to 40 mg Rosuvastatin > than or = to 20 mg Amlodipine + Atorvastatin > than or = to 2.5/40 mg Ezetimibe + Simvastatin 10/80 mg Simvastatin 80mg Discharge Plan Admission Admit Date/Time: 04/28/24 12:40 Primary Reason for Your Visit: nausea with vomiting and abdominal pain Attending Provider: Eleazar Bardales Primary Care Provider: Care Physician,No Primary Consulting Providers: Francisco Harding; Unique Dumas; Cleve Garza Discharge Orders/Prescriptions Prescriptions: New ondansetron 4 mg tablet,disintegrating 4 mg PO Q8H PRN (Reason: nausea and vomiting) 5 Days Qty: 15 0RF No Action NK Referrals / Follow Up: Care Physician,No Primary [Primary Care Provider] - Disposition Disposition (needs filled in before D/C Order can be placed): Home, Self Care Charges/Coding Visit Charges Inpatient E&M: 49580 Disch Hosp >30min
--- NOTE | 2024-04-29 11:45 | CASEMGMT ---
TC to [facility] pharmacy, pt cost for zofran is $8.99. Pt to dc this date.
== END 2024-04-29 12:39 | disposition home or self-care (01) | DRG 392 ==
LOC: ED 13:27 → MS3 15:00
PROVIDERS: Internal Medicine; Admitting Provider Internal Medicine; Emergency Provider Emergency Medicine; Visit Provider Hospitalist
DX: A08.4 Viral intestinal infection, unspecified (principal); E87.1 Hypo-osmolality and hyponatremia; E87.6 Hypokalemia; F17.290 Nicotine dependence, other tobacco product, uncomplicated; E86.0 Dehydration; Z20.828 Contact with and (suspected) exposure to other viral communicable diseases; Z23 Encounter for immunization
CPT/HCPCS: 36415; 74177; 80048; 80053; 81001; 83690; 83735; 85025; 90656; 99285; 99406; Q9967; A4216; J2405